=== PATIENT | male | born 1940 | race Caucasian/White ===

== ENCOUNTER 2023-01-07 14:19 | Outpatient (REF) | payer MEDICARE, SELFPAY ==
--- NOTE | ~2023-01-07 | XR_ITS ---
EXAMINATION: XR SINUSES CLINICAL INFORMATION: Sinusitis COMPARISON: None available. TECHNIQUE: 3 views of the sinuses were obtained. FINDINGS: Paranasal sinuses appear clear without air-fluid levels. No fractures are identified. No radiodense foreign bodies. XR/XR sinus min 3V IMPRESSION: Unremarkable examination. Please note if there is clinical concern, CT is a more sensitive study.
== END 2023-01-07 14:20 | disposition home or self-care (01) ==
LOC: HO.XRAY 14:19
PROVIDERS: PCP Internal Medicine; Visit Provider Otolaryngology
DX: J32.9 Chronic sinusitis, unspecified (principal)
CPT/HCPCS: 70220

== ENCOUNTER 2024-05-10 12:26 | Outpatient (AMB) | payer MEDICARE, SELFPAY ==
--- NOTE | 2024-05-10 12:44 | AM.OFFWIN_ITS ---
Intake Vital Signs 05/10/24 12:45 Height 5 ft 3 in BP 112/70 Blood Pressure Location Rt brachial Position Sitting Pulse 70 Pulse Source Pulse Oximeter Temp 97.9 F Temp Source Temporal Artery Scan Pulse Oximetry (%) 96 Intake Visit Reasons: [employer] uti Intake Note: pt is here for possible uti Patient Tobacco Use Status: Never used Tobacco Allergies No Known Allergies Allergy (Verified 05/10/24 12:44) Do you need a note to return to daycare/school/sports/work: No HPI HPI Comments History of Present Illness Details 84 y/o male patient who presents to walk in clinic with c/o Memory problems. Accompanied by who gives history. 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 He was also diagnosed with mild Cognitive impairment. Denies Urinary symptoms. Denies Prostate problems. Denies any CA. Reports that Family has been pressing for him to have Urine checked for infection, hence memory changes. PFSH Social History Patient Tobacco Use Status: Never used Tobacco Review of Systems Const All systems reviewed & are unremarkable except as noted in HPI and below Physical Exam Vital Signs: Last Vital Signs Temp 97.9 F 05/10/24 12:45 Pulse 70 05/10/24 12:45 BP 112/70 05/10/24 12:45 Pulse Ox 96 05/10/24 12:45 Const General: comfortable and no acute distress Orientation/consciousness: patient oriented x3 Other: Bladder exam deferred. Back/Spine/Pelvis Back: No back tenderness Neuro General: patient oriented x3, gait normal and moves all extremities Psych Speech and movement: Normal speech and movement present Results AMB Urinalysis, Automated UA Leukoctes 0 Kelin/uL Last Edit by Melissa Cunningham CMA on 05/10/24 12:55 UA Nitrite Negative Last Edit by Melissa Cunningham CMA on 05/10/24 12:55 UA Urobilinogen 0.2 mg/dL Last Edit by Melissa Cunningham CMA on 05/10/24 12:55 UA Protein 15 mg/dL Last Edit by Melissa Cunningham CMA on 05/10/24 12:55 UA pH 6.0 Last Edit by Melissa Cunningham CMA on 05/10/24 12:55 UA Blood 0 Vick/uL Last Edit by Melissa Cunningham CMA on 05/10/24 12:55 UA Specific [place] 1.015 Last Edit by Melissa Cunningham CMA on 05/10/24 12:55 UA Ketone Negative Last Edit by Melissa Cunningham CMA on 05/10/24 12:55 UA Bilirubin 0 mg/dL Last Edit by Melissa Cunningham CMA on 05/10/24 12:55 UA Glucose 0 mg/dL Last Edit by Melissa Cunningham CMA on 05/10/24 12:55 Results Reviewed Results Reviewed: Laboratory Last Values Urine pH (Auto) 6.0 05/10/24 12:54 Specific [place] (Auto) 1.015 05/10/24 12:54 Urine Protein (Auto) 15 mg/dL 05/10/24 12:54 Glucose (UA)(Auto) 0 mg/dL 05/10/24 12:54 Urine Ketones (Auto) Negative 05/10/24 12:54 Urine Blood (Auto) 0 Vick/uL 05/10/24 12:54 Urine Nitrite (Auto) Negative 05/10/24 12:54 Urine Bilirubin (Auto) 0 mg/dL 05/10/24 12:54 Urine Urobilinogen (Auto) 0.2 mg/dL 05/10/24 12:54 Leukocyte Esterase (Auto) 0 Kelin/uL 05/10/24 12:54 Assessment & Plan Assessment & Plan (1) Memory changes: Code(s): R41.3 - Other amnesia Plan: Family worried that memory changes could be caused by Urinary infection. Rapid U/A in the office negative today. Orders: Orders AMB Urinalysis Automated Today Z13.9 - Encounter for screening, unspecified Coding Level of Care Code Est Pt Level 3 (33310) Diagnoses Memory changes R41.3 Time Spent (min) 15
[2024-05-10 12:45] VITALS: BP 112/70; PULSE 70; TEMP 36.6; O2SAT 96
== END 2024-05-10 13:00 | disposition home or self-care (01) ==
PROVIDERS: PCP Internal Medicine; Visit Provider Nurse Practitioner Family
DX: R41.3 Other amnesia (principal); Z13.9 Encounter for screening, unspecified
CPT/HCPCS: 81003; 99213

== ENCOUNTER 2024-05-29 15:57 | Outpatient (REF) | payer MEDICARE, SELFPAY ==
--- NOTE | ~2024-05-29 | MR_ITS ---
EXAMINATION: MR BRAIN WITHOUT CONTRAST CLINICAL INFORMATION: 84-year-old with dementia. COMPARISON: None available. TECHNIQUE: MRI of the brain was obtained using routine sequences without contrast. FINDINGS: Brain Volume: There is moderate generalized diffuse brain parenchymal volume loss. Suspect slightly disproportionate diffuse cerebellar volume loss. Structural: Note is made of a relatively flattened appearance to the superior aspect of the midbrain, with a midbrain to iron ratio in the sagittal plane of 0.51. 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 Correlate with neurological examination. Brain and Meninges: There are multiple small patchy and punctate zones of FLAIR/T2 signal hyperintensity in the subcortical and deeper white matter of both cerebral hemispheres with focally confluent regions of T2 hyperintensity in the deep parieto-occipital/periatrial white matter bilaterally and adjacent to the occipital horns which are nonspecific findings but could reflect chronic ischemic microangiopathy. Allowing for artifacts near the skull base, gradient refocused imaging demonstrates no abnormal susceptibility-weighted signal loss to suggest hemorrhage, hemosiderin staining or abnormal mineralization. No extra-axial fluid collections, significant space-occupying process or mass effect are identified. Ventricles and Subarachnoid Spaces: There is moderate third, fourth and lateral ventriculomegaly, which to some extent probably reflects volume loss; however, given the periventricular findings, periventricular subependymal edema related to hydrocephalus is of concern. Consider neurosurgical consultation. Orbital Structures: Bilateral lens replacements are noted. Otherwise, the visualized orbital structures are grossly unremarkable within the limitations of the study. Vascular: Signal voids are noted in the visualized major intracranial vessels. Osseous Structures, Sinuses/Mastoids, Extracranial Soft Tissues: Unremarkable MR/MR head/brain wo con IMPRESSION: 1. Generalized diffuse brain parenchymal volume loss throughout the supratentorial and infratentorial compartment with slightly disproportionate cerebral volume loss and morphological changes in the mid brain which could be secondary to progressive supranuclear palsy. Correlate with neurological examination. 2. Findings raising the possibility for periventricular subependymal edema associated with ventriculomegaly suggesting hydrocephalus. Recommend neurosurgical/neurological consultation. 3. Chronic ischemic microangiopathy in the white matter of both cerebral hemispheres with a posterior predominance also noted. The [facility] staff will call to confirm receipt of this report with acknowledgement of the findings and any recommendations. Electronically signed by: Darian Celis MD 06/21/2024 05:00 PM EDT
== END 2024-05-29 15:58 | disposition home or self-care (01) ==
LOC: HO.MRI 15:57
PROVIDERS: PCP Internal Medicine; Visit Provider Student in an Organized Health Care Education/Training Program
DX: F03.A2 Unspecified dementia, mild, with psychotic disturbance (principal)
CPT/HCPCS: 70551

== ENCOUNTER 2024-06-01 12:41 | Outpatient (REF) | payer MEDICARE, SELFPAY ==
[2024-06-05 14:12] LABS: Methylmalonic Acid 174 nmol/L (85-423)
== END 2024-06-01 12:42 | disposition home or self-care (01) ==
LOC: HO.LAB 12:41
PROVIDERS: PCP Internal Medicine; Visit Provider Student in an Organized Health Care Education/Training Program
DX: F03.A2 Unspecified dementia, mild, with psychotic disturbance (principal)
CPT/HCPCS: 36415; 83090; 83921

== ENCOUNTER 2024-06-02 06:48 | Outpatient (REF) | payer MEDICARE, SELFPAY ==
[2024-06-10 13:53] LABS: Vitamin B1 11 nmol/L (8-30)
== END 2024-06-02 06:49 | disposition home or self-care (01) ==
LOC: HO.LAB 06:48
PROVIDERS: PCP Internal Medicine; Visit Provider Student in an Organized Health Care Education/Training Program
DX: F03.A2 Unspecified dementia, mild, with psychotic disturbance (principal)
CPT/HCPCS: 36415; 84425

== ENCOUNTER 2025-01-29 13:40 | Inpatient (IN) | payer MEDICARE, SELFPAY ==
--- NOTE | ~2025-01-29 | XR_ITS ---
EXAMINATION: XR HAND/WRIST, RIGHT XR HAND/WRIST, LEFT CLINICAL INFORMATION: first digit pain COMPARISON: None TECHNIQUE: PA, lateral, and oblique views of the each hand and wrist. FINDINGS: RIGHT HAND/WRIST: No fracture, dislocation, or suspicious bone lesion. There is normal bone mineralization. There is normal alignment. No periarticular osteopenia or evidence of erosions. MCPs appear normal. Carpal bones intact and normally aligned. No blunting of the ulnar styloid. Minimal arthritic changes in the first CMC joint, first MCP joint, and throughout the DIP joints, degenerative in appearance. No soft tissue abnormalities. LEFT HAND/WRIST: No fracture, dislocation, or suspicious bone lesion. There is normal bone mineralization. There is normal alignment. No periarticular osteopenia or evidence of erosions. MCPs appear normal. Carpal bones intact and normally aligned. No blunting of the ulnar styloid. Minimal arthritic changes in the first CMC joint, first MCP joint, and throughout the DIP joints, degenerative in appearance. Soft tissues demonstrate 2 linear radiopaque densities medial to the radial styloid. XR/XR Hand Bilat min 3v IMPRESSION: 1. No acute bony abnormalities. 2. No radiographic evidence of inflammatory arthropathy. 3. 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 Electronically signed by: Cornelius Andersen MD 01/29/2025 03:02 PM EDT
--- NOTE | ~2025-01-29 | CT_ITS ---
EXAMINATION: CT HEAD WITHOUT IV CONTRAST HISTORY: fall +headstrike. TECHNIQUE: Unenhanced helical CT of the head was performed per standard departmental protocol. Coronal and sagittal reformats of the head were also evaluated. One or more of the following techniques was used for dose reduction: Automated exposure control, adjustment of the mA and/or kV according to patient size, use of iterative reconstruction technique. DLP: 689 mGy-cm COMPARISON: There are no prior studies for comparison. FINDINGS: BRAIN: There is diffuse prominence of the ventricular system and cortical sulci, consistent with atrophy. Periventricular and subcortical white matter hypodensities are noted which are nonspecific, but often seen in the setting of small vessel ischemic disease. There is no mass effect or midline shift. No intra- or extra-axial fluid collections are identified. SINUSES: The visualized paranasal sinuses are clear. The mastoid air cells and middle ear cavities are well pneumatized. ORBITS: The visualized orbits are unremarkable. BONES/SOFT TISSUES: The extracranial soft tissues are unremarkable. The calvarium is intact. No suspicious lytic or sclerotic lesions. CT/CT head/brain wo IV con IMPRESSION: No acute intracranial abnormality. Electronically signed by: Jeevan Keller MD 01/29/2025 02:46 PM EDT
--- NOTE | ~2025-01-29 | CT_ITS ---
EXAMINATION: CT CERVICAL SPINE WITHOUT IV CONTRAST HISTORY: fall +head strike. TECHNIQUE: Helical CT of the cervical spine was performed per standard departmental protocol. Coronal and sagittal reformatted images were also evaluated. One or more of the following techniques was used for dose reduction: Automated exposure control, adjustment of the mA and/or kV according to patient size, use of iterative reconstruction technique. DLP: 276 mGy-cm COMPARISON: There are no prior studies for comparison. FINDINGS: CERVICAL SPINE: The vertebral bodies maintain normal height and alignment without evidence of fracture or subluxation. There is diffuse moderate degenerative disc disease with disc space narrowing and osteophyte formation. There is facet osteoarthritis and uncovertebral joint hypertrophy causing neural foraminal narrowing, right greater than left. Evaluation for disc pathology is limited by lack of intrathecal contrast material, however. BRAIN: The visualized portion of the brain is unremarkable. SINUSES: The visualized paranasal sinuses, mastoid air cells and middle ear cavities are unremarkable. LUNG APICES: The visualized lung apices are clear. SOFT TISSUES: The visualized paraspinal soft tissues are unremarkable. CT/CT cervical spine wo IV con IMPRESSION: No evidence of fracture or malalignment of the cervical spine. Degenerative changes as described. Electronically signed by: Jeevan Keller MD 01/29/2025 02:51 PM EDT
[2025-01-29 13:44] VITALS: BP 104/53; PULSE 62; RESP 18; TEMP 36.6; O2SAT 96; BMI 22.9
--- NOTE | 2025-01-29 13:49 | ED_ITS ---
HPI - General Adult General Chief complaint: General Medical Stated complaint: Dementia L Thumb Injury 01/28/25 Time Seen by Provider: 01/29/25 18:11 Source: family (, daughter and son) Mode of arrival: EMS Limitations: no limitations History of Present Illness ED Provider: Dr. Orlin James HPI narrative: 84-year-old male with a history of coronary artery disease, CABG at age 63, hypertension, hyperlipidemia, dementia who was brought to emergency department for evaluation of change in his behavior. According to the family, the patient has a gerontologist who has been managing he was dementia . The patient was doing well on risperidone, but this medication was stop secondary to parkinsonian like symptoms. The patient was then started on Seroquel. This was a proximally 4 weeks prior since that time the patient was had a drastic change in his behavior. The patient lives with his at [facility]. The patient has been wandering around he has been going into other residents apartments. He was become aggressive with his . Yesterday he got out of the apartment and was walking outside, tripped and fell. Patient rolled to the ground and injured his left thumb. The witnessed the fall and states he did not have any head injury or loss of consciousness. Family is concerned that the patient was become more aggressive and are requesting that he be evaluated for possible Geropsychiatric admission to stabilize his behavior. According to the family, he was not been ill in any way over the last several days, he was had no fever, chills, nausea, vomiting, shortness of breath. Related Data Home Medications ?Medication ?Instructions ?Recorded ?Confirmed isosorbide mononitrate 60 mg 60 mg PO DAILY 05/10/24 01/29/25 tablet,extended release 24 hr lisinopril 20 mg tablet 20 mg PO DAILY 05/10/24 01/29/25 metoprolol tartrate 25 mg tablet 25 mg PO BID 05/10/24 01/29/25 risperidone 0.5 mg tablet 0.5 mg PO DAILY 05/10/24 01/29/25 rosuvastatin 40 mg tablet 40 mg PO DAILY 05/10/24 01/29/25 aspirin 81 mg tablet 81 mg PO DAILY 01/29/25 01/29/25 bupropion HCl 100 mg tablet,12 hr 100 mg PO DAILY 01/29/25 01/29/25 sustained-release clopidogrel 75 mg tablet (Plavix) 75 mg PO BID 01/29/25 01/29/25 escitalopram oxalate 10 mg tablet 10 mg PO BID 01/29/25 01/29/25 (Lexapro) famotidine 20 mg tablet (Pepcid) 20 mg PO BID 01/29/25 01/29/25 risperidone 1 mg tablet 1 mg PO DAILY@1700 01/29/25 01/29/25 trazodone 50 mg tablet 50 mg PO BID 01/29/25 01/29/25 Allergies Allergy/AdvReac Type Severity Reaction Status Date / Time No Known Allergies Allergy Verified 01/29/25 13:50 [facility] Past Medical History Medical History (Updated 01/29/25 @ 23:26 by Orlin James MD) Dementia Hypertension Memory impairment 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 Surgical History (Updated 01/29/25 @ 18:35 by Claudia Caruso RN) H/O heart artery stent Hx of CABG Social History Social History Patient Tobacco Use Status: Never used Tobacco Smoked in Last 30 Days: No Use of substances other than those prescribed or required for medical reasons: No Advance Directives: No Advance Directives Information Provided: Yes Do you have a plan to hurt others: No Plan Physical Exam ED Vital Signs: Vital Signs - 24 hr 01/29/25 13:44 01/29/25 17:54 01/30/25 01:35 Temperature 97.9 F 97.3 F 97.9 F Pulse Rate 62 66 77 Respiratory Rate 18 16 16 Blood Pressure 104/53 L 153/78 H 161/76 H Pulse Oximetry 96 98 94 Oxygen Delivery Method Room Air Room Air Room Air 01/30/25 08:27 01/30/25 10:59 01/30/25 11:13 Temperature 97.2 F Pulse Rate 62 59 59 Respiratory Rate 14 16 16 Blood Pressure 180/92 H 119/64 102/64 Pulse Oximetry 95 97 98 Oxygen Delivery Method Room Air Room Air Room Air 01/30/25 11:28 01/30/25 12:06 Temperature Pulse Rate 57 Respiratory Rate 16 Blood Pressure 155/94 H 197/91 H Pulse Oximetry 97 Oxygen Delivery Method Room Air BMI result Body Mass Index 22.9 Initial vital signs were normal. Exam: General: Awake, alert oriented to person, lacks insight as to why he is here in the emergency department, does appear to be agitated Head: Normocephalic, atraumatic EENT: PERRL, Lids normal, sclera normal, conjunctiva normal, nose normal , ears normal, throat without erythema or exudates Neck: Supple, no adenopathy Lung: breath sounds symmetric, no wheezing, rales or rhonchi Chest: symmetric movement, nontender Heart: regular rate and rhythm, normal S1, S2 no murmurs or rubs Abdomen: soft, non-tender, nondistended, normal bowel sounds Back: no vertebral tenderness, no CVAT Extremities: Tenderness of the MCP joint of the left thumb with some soft tissue swelling, moves all extremities symmetrically Neuro: General: Awake, alert, oriented to person only, lacks insight as to why he was here, normal speech Cranial nerves: Cranial nerves 2-12 are intact Strength: Patient was symmetric strength, he does have an intention tremor Cerebellar: Good gblgfx-rk-ezwy-to-finger, good rapid finger movement, able to touch each finger individually with a his thumb, normal heel to mojica Psych: Patient was confused on lacks insight as to why he was here, he was slightly agitated. Course Course Course Narrative: This is a Rapid Medical Examination (RME) performed by Alin Grier PA-C in triage. Full HPI, ROS, assessment and treatment plan per primary provider in the Main ED. 01/29/25 1351 HALLE Farrell Hx: 84 yo male hx dementia, here w/ daughter and , for psych eval. family reports patient has been declining. becoming difficult to manage at home. left the home yesterday causing him to fall outside, witnessed by with +head strike. no loc. no thinners. reports paint oright 1st digit and left thumb. family spoke with PCP, advised to come to ED for possible admission to [facility] for med reconciliation. PE/vitals: vital stable. noted swelling to left thumb Plan: labs, UA, xrs, ct Reevaluation(s) Reevaluation #1: Time: 09:57 Date: 01/30/25 Provider: Fernie Ruiz MD Patient in physician observation for psychiatric evaluation.? No acute events reported overnight. No current complaints. VS stable.? Patient is in bed search status/pending CARE team evaluation. Will continue to monitor. Time: 09:57 Reevaluation #2: Patient remain sedated this morning, I re-examined the patient is still sleeping. I gastric that the last night with IM Versed/IM Benadryl and Haldol we will continue to follow Time: 12:22 Medications Administered Generic Name Dose Route Start Last Admin Trade Name Freq PRN Reason Stop Dose Admin Isosorbide Mononitrate 60 mg 01/30/25 09:00 01/30/25 12:06 Isosorbide Mononitrate 60 Mg Tab.Er.24h PO 60 mg DAILY MICHELLE Administration Protocol Discontinued Medications Generic Name Dose Route Start Last Admin Trade Name Freq PRN Reason Stop Dose Admin Acetaminophen 650 mg 01/30/25 00:39 01/30/25 01:49 Acetaminophen 325 Mg Tablet PO 01/30/25 00:40 Not Given ONCE ONE Diphenhydramine HCl 50 mg 01/30/25 00:23 01/30/25 00:31 Diphenhydramine Hcl 50 Mg/Ml Vial IM 01/30/25 00:24 50 mg ONCE ONE Administration Haloperidol Lactate 5 mg 01/30/25 00:23 01/30/25 00:31 Haloperidol Lactate 5 Mg/Ml Vial IM 01/30/25 00:24 5 mg ONCE ONE Administration Midazolam HCl 2 mg 01/30/25 00:23 01/30/25 00:31 Midazolam Hcl 2 Mg/2 Ml Vial IM 01/30/25 00:24 2 mg ONCE ONE Administration Olanzapine 10 mg 01/29/25 20:19 01/29/25 21:08 Olanzapine 10 Mg Tablet PO 01/29/25 20:20 10 mg ONCE ONE Administration Olanzapine 10 mg 01/29/25 23:34 01/29/25 23:53 Olanzapine 10 Mg Tablet PO 01/29/25 23:35 10 mg ONCE ONE Administration Risperidone 0.5 mg 01/29/25 20:17 01/29/25 21:08 Risperidone 0.5 Mg Tablet PO 01/29/25 20:18 0.5 mg ONCE ONE Administration Medical Decision Making Medical Decision Making MDM Narrative: 84-year-old male with a history of coronary artery disease, CABG at age 63, hypertension, hyperlipidemia, dementia who was brought to emergency department for evaluation of change in his behavior. According to the family, the patient has a gerontologist who has been managing he was dementia . The patient was doing well on risperidone, but this medication was stop secondary to parkinsonian like symptoms. The patient was then started on Seroquel. This was a proximally 4 weeks prior since that time the patient was had a drastic change in his behavior. The patient lives with his at [facility]. The patient has been wandering around he has been going into other residents apartments. He was become aggressive with his . Yesterday he got out of the apartment and was walking outside, tripped and fell. Patient rolled to the ground and injured his left thumb. The witnessed the fall and states he did not have any head injury or loss of consciousness. Family is concerned that the patient was become more aggressive and are requesting that he be evaluated for possible Geropsychiatric admission to stabilize his behavior. Initial vital signs were normal. Patient lacks insight as to why he was here, he was confused and agitated. Patient's neurologic exam was nonfocal and he had a normal cerebellar exam. Rest of exam was unremarkable except for tenderness palpation he was left thumb at the MCP joint. Differential diagnosis: ?Includes but is not limited to he was skull fracture, intracranial bleed, stroke, change in dementia, depression, anxiety, electrolyte abnormalities, anemia Course: 20:31 My interpretation patient's laboratory evaluation is as follows: CBC was normal. CMP was normal. TSH was normal. Urinalysis was negative. CT scan of the patient's head and cervical spine revealed no acute findings. The x-ray of the patient's left thumb/hand revealed no acute fracture. The patient was getting agitated during my exam . After my exam, he appeared to be more agitated and does not want to be here in the emergency department. therefore the patient was given his evening risperidone 0.5 mg orally and Zyprexa 10 mg orally. At this time, I believe the patient was medically cleared for care team evaluation to see if this patient would benefit from [facility] psychiatric admission. Time: 23:18 Date: 01/29/25 Provider: Orlin James MD Start physician observation 23:18 The patient was seen by the care team and it was felt that the patient's acute change in his dementia may be secondary to change in his medications and that the patient would benefit from a psychiatric evaluation and [facility] psychiatric admission. The patient was clearly confused and lacks insight into why he was here. The patient was also been exhibiting dangerous behaviors at home by wandering out of his apartment and going into other residents apartments. He has also been threatening his . Given these findings, the patient was placed on a Section 12. Patient did calm down after receiving the Zyprexa 10 mg orally. The patient will remain in the emergency department until a psychiatric consult and competency exam can be obtained. I did discuss this plan with the patient's family and they were in agreement with the plan. 01/30/2025 01:36 Physician observation continued The patient was restless and agitated, he continued to try to climb out of his bed. Patient he was given a 2nd dose of Zyprexa 10 mg orally with only minimal effect. After several attempts of the patient trying to climb out of bed and almost injuring himself, patient was chemically restrained with Haldol 5 mg, Benadryl 50 mg and Versed 2 mg IM with good effect. At the end of my shift, patient's care was turned over to my colleague, Dr. Luis Alfredo Parada. Admission/Observation Consideration of admission/observation: Escalation of care including admission/observation considered ( yes) Consult Healthcare Provider Care Team counseling Lab Data MDM Lab Attestation statement: I reviewed the patient's lab results. 01/29/25 14:03 01/29/25 14:03 Labs: Lab Results 01/29/25 01/29/25 01/29/25 Range/Units 14:03 15:53 15:56 WBC 8.4 (4.8-10.8) X10*3/uL RBC 4.29 L (4.60-5.80) X10*6/uL Hgb 14.0 (14.0-18.0) g/dl Hct 40.4 L (42.0-52.0) % MCV 94.2 (80.0-98.0) fL MCH 32.6 (27.0-33.0) pg MCHC 34.7 (31.0-36.0) g/dl RDW 12.4 (11.0-16.0) % Plt Count 177 (160-400) X10*3/uL MPV 10.7 (9.4-12.4) fL Immature Gran % (Auto) 0.4 (0.0-0.4) % Neut % (Auto) 61.1 (45-73) % Lymph % (Auto) 26.1 (20-40) % [place] % (Auto) 10.5 (2-11) % Eos % (Auto) 1.5 (0-4) % Baso % (Auto) 0.4 (0-2) % Lymph # (Auto) 2.2 (1.2-4.9) X10*3/uL [place] # (Auto) 0.9 (0.1-1.2) X10*3/uL Eos # (Auto) 0.1 (0.0-0.4) X10*3/uL Baso # (Auto) 0.0 (0.0-0.2) X10*3/uL Abs Immat Gran (auto) 0.03 (0.00-0.03) X10*3/uL Absolute Neuts (auto) 5.1 (2.0-8.3) x10*3/uL Absolute Nucleated RBC 0.000 (0.0-0.012) X10*3/uL Nucleated RBC % (auto) 0.0 (0.0-0.2) /100WBC Sodium 140 (135-145) mmol/L Potassium 4.0 (3.3-5.1) mmol/L Chloride 111 H (96-108) mmol/L Carbon Dioxide 26 (22-29) mmol/L Anion Gap 7 L (12-20) BUN 17 H (9-16) mg/dL Creatinine 1.29 (0.5-1.4) mg/dL Estim Creat Clear Calc 33.0 Estimated GFR 53 Random Glucose 99 (60-115) mg/dL Calcium 9.0 (8.4-10.2) mg/dL Magnesium 2.0 (1.6-2.6) mg/dL Total Bilirubin 1.0 (0.0-1.0) mg/dL AST 24 (5-37) U/L ALT 23 (0-40) U/L Alkaline Phosphatase 56 (39-117) U/L Total Protein 6.3 L (6.5-8.0) g/dL Albumin 3.9 (3.5-5.0) g/dL TSH 1.43 (0.32-4.0) uIU/mL Urine Color Yellow Urine Appearance Clear Urine pH 6.0 (5.0-9.0) Ur Specific [place] 1.020 (1.005-1.025) Urine Protein Trace (Neg-Trace) mg/dL Urine Glucose (UA) Negative (Negative) mg/dL Urine Ketones Trace (Negative) mg/dL Urine Blood Negative (Negative) Urine Nitrite Negative (Negative) Ur Leukocyte Esterase Negative (Negative) Urine Opiates Screen Not Detected (Not Detect) Ur Buprenorphine Scrn Not Detected (Not Detect) ng/mL Ur Oxycodone Screen Not Detected (Not Detect) ng/mL Urine Methadone Screen Not Detected (Not Detect) ng/mL Urine Fentanyl Screen Not Detected (Not Detect) Ur Barbiturates Screen Not Detected (Not Detect) Ur Phencyclidine Scrn Not Detected (Not Detect) Ur Amphetamines Screen Not Detected (Not Detect) U Benzodiazepines Scrn Not Detected (Not Detect) Urine Cocaine Screen Not Detected (Not Detect) U Marijuana (THC) Screen Not Detected (Not Detect) Radiology Impression Discussion of test interpretation with radiology: I have reviewed the radiologist's reading. Radiologist Impression: CT cervical spine wo IV con IMPRESSION: No evidence of fracture or malalignment of the cervical spine. Degenerative changes as described. Electronically signed by: Jeevan Keller MD 01/29/2025 02:51 PM EDT XR Hand Bilat min 3v IMPRESSION: 1. No acute bony abnormalities. 2. No radiographic evidence of inflammatory arthropathy. 3. 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 Electronically signed by: Cornelius Andersen MD 01/29/2025 03:02 PM EDT Independent Historian Clinical information obtained from an independent historian. History obtained from or confirmed by: Spouse and Other (Son and daughter) Chronic Conditions Patient?s care impacted by: Other (Coronary artery disease, dementia) Discharge Plan Discharge Clinical Impression: Dementia, Aggressive behavior, Wandering behavior Prescriptions: No Action trazodone 50 mg Tablet 50 mg PO BID clopidogrel [Plavix] 75 mg Tablet 75 mg PO BID bupropion HCl 100 mg Tablet Sustained-Release 12 Hr 100 mg PO DAILY famotidine [Pepcid] 20 mg Tablet 20 mg PO BID aspirin 81 mg Tablet 81 mg PO DAILY risperidone 1 mg Tablet 1 mg PO DAILY@1700 escitalopram oxalate [Lexapro] 10 mg Tablet 10 mg PO BID risperidone 0.5 mg tablet 0.5 mg PO DAILY lisinopril 20 mg tablet 20 mg PO DAILY metoprolol tartrate 25 mg tablet 25 mg PO BID rosuvastatin 40 mg tablet 40 mg PO DAILY isosorbide mononitrate 60 mg tablet extended release 24 hr 60 mg PO DAILY Print Language: Ukrainian
[2025-01-29 14:08] LABS: MANUAL DIFF FLAG NO
[2025-01-29 14:13] LABS: Basophils Percent Auto 0.4 % (0-2); Eosinophils Absolute Auto 0.1 X10*3/uL (0.0-0.4); Eosinophils Percent Auto 1.5 % (0-4); Hematocrit 40.4 % (42.0-52.0); Imm Gran Abs Auto 0.03 X10*3/uL (0.00-0.03); Imm Gran Pct Auto 0.4 % (0.0-0.4); Lymphocytes Absolute Auto 2.2 X10*3/uL (1.2-4.9); Lymphocytes Percent Auto 26.1 % (20-40); Mean Corpuscular HGB Conc 34.7 g/dl (31.0-36.0); Mean Corpuscular Hemoglobin 32.6 pg (27.0-33.0); Mean Corpuscular Volume 94.2 fL (80.0-98.0); Mean Platelet Volume 10.7 fL (9.4-12.4); Monocytes Absolute Auto 0.9 X10*3/uL (0.1-1.2); Monocytes Percent Auto 10.5 % (2-11); Neutrophils Absolute Auto 5.1 x10*3/uL (2.0-8.3); Neutrophils Percent Auto 61.1 % (45-73); Platelet Count 177 X10*3/uL (160-400); Red Blood Count 4.29 X10*6/uL (4.60-5.80); Red Cell Distribution Width 12.4 % (11.0-16.0); White Blood Count 8.4 X10*3/uL (4.8-10.8)
[2025-01-29 14:25] LABS: Alanine Aminotransferase 23 U/L (0-40); Albumin Level 3.9 g/dL (3.5-5.0); Alkaline Phosphatase 56 U/L (39-117); Anion Gap 7 (12-20); Aspartate Amino Transferase 24 U/L (5-37); Blood Urea Nitrogen 17 mg/dL (9-16); Carbon Dioxide 26 mmol/L (22-29); Chloride 111 mmol/L (96-108); Estimated Glomerular Filt Rate 53; Glucose Random 99 mg/dL (60-115); Sodium 140 mmol/L (135-145); Total Protein 6.3 g/dL (6.5-8.0)
[2025-01-29 14:44] LABS: TSH reflex Free T4 1.43 uIU/mL (0.32-4.0)
[2025-01-29 16:03] LABS: Appearance Urine Clear; Color Urine Yellow; Glucose Urine UA Negative (Negative); Leukocyte Esterase Urine Negative (Negative); Nitrite Urine Negative (Negative); Urine Blood Negative (Negative); Urine Ketones Trace mg/dL (Negative); Urine Protein Trace mg/dL (Neg-Trace)
[2025-01-29 17:54] VITALS: BP 153/78; PULSE 66; RESP 16; TEMP 36.3; O2SAT 98
--- OUTSIDE RECORDS SUMMARY | 2025-01-29 18:40 | XMS_ITS ---
Author Organization [facility] Address [address] [place] [id number] Care Team Providers Care Help Desk Support Specialist Name Role Phone Bulmaro SALCEDO, Magdiel Primary Care Provider Unava ilLilly Pimentel Unavailable [phone] Encounters Encounter Location Date Provider Diagnosis [facility] [address] [place] [address] 01/31/2024 Lilly Ellsworth Plan Of Treatment No Information Progress Notes * Cory HO NitzaDOB:1939 (84 yo M)Acc No.[id number]:01/31/2024 Progress Note Patient:Cory MENDOZA Provider:?Lilly Ellsworth DPM :1940???Age:83 Y???Sex:Male Good e:01/31/2024 Address:[address] [place], [place] [id number] Pcp:Magdiel Chamberlain MD Subjective: * Chief Complaints: * ??? * Medical History:? Objective: * Vitals:? Assessment: Plan: * Treatment: * Images: * The named appointment provid er may or may not be the originator of this progress note, and it is not deemed complete until electronically signed by the appointment provider. Sign off status: Pending * Provider:?Lilly Ellsworth DPM Date:?2023 Generated for Suhas guadarrama/Kain/eTransmitting on:?01/29/2025 06:39 PM EDT
--- OUTSIDE RECORDS SUMMARY | 2025-01-29 18:40 | XMS_ITS | Patient Health Record ---
Author Organization [facility] [place] Address [address] [facility] [place] [address] Care Team Providers Care Flight Agent Name Role Phone Magdiel Chamberlain MD Primary Care Provider Unava ilable Black, Lilly Unavailable [phone] Allergies Allergen (clinical drug ingredient) Drug/Non Drug Allergy documented on EMR Reaction Allergy Type Onset Date Status Seasonale Unknown Drug Allergy Active Dust Mite Mixed Allergen Ext Unknown Drug Allergy Active Reason For Referral No Information Medications Medication SIG (Take, Route, Frequency, Duration) Notes Start Date End Date Status Isosorbide Mononitrate ER 60 MG 1 tablet in the morning Orally Once a day Active Lisinopril 20 MG 1 tablet Orally Once a day Active Pepcid Active Voltaren 1 % as directed Externally Active Zantac 150 MG/6ML 2 ml Injection every 8 hrs Not-Taking Aspirin 81 MG 1 tablet Orally Once a day Active Doxylamine Succinate (Sleep) 25 MG 1 tablet at bedtime as needed Orally Once a day Not-Taking Brilinta 90 MG 1 tablet Orally Twic e a day for 30 day(s) Active Crestor 40 MG 1 tablet Orally Once a day Active Metoprolol Tartrate 25 MG 1 tablet with food Orally Twice a day Active Plavix 75 MG 1 tablet Orally Once a day for 30 day(s) Not-Taking Eye Drops thear Active OcuSoft Dry Eye Not- Taking Refresh Tears eye drops Active Plavix 75 MG 1 tablet Orally Once a day Not-Taking Immunizations Vaccine Route Administration Date Status Comme nts COVID-19 Pfizer BioNTech Vaccine Unknown 06/18/2022 Administered 1st 10/202011/2020 unsure dates Social History Tobacco Use: Social History Observation Description Date Details (start date - stop date) Former Smoker NA - NA Tobacco Use/Smoking Question Answer Notes Are you a: former smoker Additional Findings: Tobacco Non-User Current no n-smoker Alcohol Screen Question Answer Notes Did you have a drink contain ing alcohol in the past year? Yes How often did you have a dri nk containing alcohol in the past year? 2 to 4 times a month (2 points) Points 2 Interpretation Negative Tobacco use other than smoking: Question Answer Notes Are you an other tobacco user? No Problems Problem Type SNOMED Code ICD Code Onset Dates Problem Status W/U Status Risk Notes Problem Localized, primary osteoarthritis of the ankle and/or foot (025661198) Primary osteoarthritis, right ankle and foot (M19.071) Active confirmed Problem Non-pressure ulcer lower limb (994975346) Non-pressure chronic ulcer of other part of right foot limited to breakdown of skin (L97.511) Active confirmed Problem Acquired hammer toe of right foot (3685269710298199) Other hammer toe(s) (acquired), right foot (M20.41) Active confirmed Problem Joint contracture of the ankle and/or foot (628748535) 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) Active confirmed Encounters Encounter Location Date Provider Diagnosis [facility] [address] [place] [address] 03/21/2024 Lilly Ellsworth Plan Of Treatment Pending Test Test Name Order Date X ray : Foot, left 3V 01/04/2023 X ray : Foot, right 3V 11/22/2017 [id number] Destruction, 1-14 07/15/2023 53306-Sxuv Destruction, -14 11/18/2023 48648- Debride <25 sq cm 02/19/2020 78550, [id number]-PXQCT/INJECT, JOINT/BURSA 0 05/27/2020 90746 - Tenotomy, open flexor 02/05/2020 Insurance Providers Payer Name Payer Address Payer Phone Subscriber Number Group Number Insured Name Patient Relationship to Insured Coverage Start Date Coverage End Date [employer] Medicare [id number] [address] [address] [place] [address] [id number] Cory Ho Self - patient is the insured 1 Medical (General) History Medical History History ICD Code Heart disease High blood pressure Measles Mumps Vascular grafts blepharitis Surgical History Surgery Date(Month/Year) appendectomy triple bypass rotator cuff tear repair 2010 torn miniscus in knee 11/2019 Cardiac stent/one replaced and one opene d 11/26/2020 Colonoscopy 02/06 Hospitalization History Reason Date(Month/Year) [facility]- Cardiac issues- 3 day stay- stent r eplaced 11/26/2020
--- OUTSIDE RECORDS SUMMARY | 2025-01-29 18:40 | XMS_ITS ---
Author Organization [facility] Address [address] [place] [address] Care Team Providers Care Airplane Coverer Name Role Phone Bulmaro SALCEDO, Magdiel Primary Care Provider Unava ilable Black, Lilly Unavailable [phone] REASON FOR VISIT Cancel Encounters Encounter Location Date Provider Diagnosis [facility] [address] [place] [address] 03/21/2024 Lilly Black Plan Of Treatment No Information Progress Notes * CJPatel FERNANDESvannesa GoddardDOB:1939 (84 yo M)Acc No.[id number]:03/21/2024 Patient:?Cory Ho :1940???Age:84 Y???Sex:Male Address:[address] [place] [address] [address], [place], [address] * true * Date:? Generated for Dannyi chiara/Kain/eTransmitting on:?01/29/2025 06:40 PM EDT
--- OUTSIDE RECORDS SUMMARY | 2025-01-29 18:40 | XMS_ITS ---
Author Organization [facility] Address [address] [place] [address] Care Team Providers Care Order Runner Name Role Phone Bulmaro SALCEDO, Magdiel Primary Care Provider Unava ilLilly Pimentel Unavailable [phone] Encounters Encounter Location Date Provider Diagnosis [facility] [address] [place] [address] 03/30/2024 Lilly Ellsworth Plan Of Treatment No Information Progress Notes * Croy OHDOB:1939 (84 yo M)Acc No.[id number]:03/30/2024 Progress Note Patient:Cory MENDOZA Provider:?Lilly Ellsworth DPM :1940???Age:84 Y???Sex:Male Good e:03/30/2024 Address:[address] [place], [place] [id number] Pcp:Magdiel Chamberlain MD Subjective: * Chief Complaints: [...] DPM Date:?2023 Generated for Suhas guadarrama/Kain/eTransmitting on:?01/29/2025 06:40 PM EDT
--- OUTSIDE RECORDS SUMMARY | 2025-01-29 18:40 | XMS_ITS | Clinical Summary ---
Author Organization [facility] Address [address] [place] [address] Care Team Providers Care Clothes Shaker Name Role Phone Magdiel Chamberlain MD Primary Care Provider [phone] Allergies Active Allergy Reactions Criticality Noted Date Comments Niacin 01/07/2022 pancreatitis Medications aspirin 81 mg EC tablet Take 1 Tablet by mouth daily. Active carboxymethylcel lulose (Lubricant Eye Drops) 0.25 % ophthalmic solution apply?to the eye daily. Active clopidogreL (PLAVIX) 75 mg tablet Take?by mouth See Admin Instructions . Active famotidine (PEPCID) 20 mg tablet Take 1 Tablet by mouth 2 times daily. Active isosorbide mononitrate (IMDUR) 60 mg 24 hr tablet Take 1 Tablet by mouth daily. Active lisinopriL (PRINIVIL,ZESTRI L) 20 mg tablet Take 1 Tablet by mouth daily. Active metoprolol tartrate (LOPRESSOR) 25 mg tablet Take 1 Tablet by mouth 2 times daily. Active nitroglycerin (NITROSTAT) 0.[address] 1 Tablet under the tongue every 5 minutes as needed for Chest pain. 02/09/2024 Active rosuvastatin (CRESTOR) 40 mg tablet Take 1 Tablet by mouth daily. Active sertraline (ZOLOFT) 50 mg tablet Take 1 Tablet by mouth daily. Active PREDNISONE ORAL Take 4 mg by mouth as needed. Active Active Problems Problem Noted Date Diagnosed Date HTN (hypertension) 01/06/2022 CKD (chronic kidney disease) 01/06/2022 CAD (coronary artery disease) 01/06/2022 Atherosclerosis 01/06/2022 Atherosclerosis of [place] co ronary artery of [place] heart with stable angina pectoris (CMS/HCC V24) 01/06/2022 Medical History Medical History Date Comments CKD (chronic kidney disease) DX: CKD (chronic kidney disease) GERD (gastroesophageal reflux disease) DX:GERD (gastroesophageal reflux disease) Urge incontinence of urine DX:Ur ge incontinence of urine Family History Medical History Relation Name Comments Heart attack Mother Depression Son Relation Name Status Comments Mother Son Social History Tobacco Use Types Packs/Day Years Used Date Smoking Tobacco: Former Cigarettes Q uit: 10/18/1971 Smokeless Tobacco: Never Alcohol Use Standard Drinks/Week Comments Not Currently 0 (1 standard drink = 0.6 oz pur e alcohol) Sex and Gender Information Value Date Recorded Sex Assigned at Not on file Legal Sex Male 10:03 PM EST Gender Identity Not on file Sexual Orientation Not on file Obstetrics History Last Filed Vital Signs Vital Sign Reading Time Taken Comments Blood Pressure 122/72 02/09/2024 8:01 AM EDT Pulse 57 02/09/2024 8:01 AM EDT Temperature - - Respiratory Rate - - Oxygen Saturation - - Inhaled Oxygen Concentration - - Weight 63.5 kg (140 lb) 02/09/2024 8:01 AM EDT Height 160 cm (5' 3 ) 02/09/2024 8:01 AM EDT Body Mass Index 24.8 02/09/2024 8:01 AM EDT Plan of Treatment Upcoming Encounters Date Type Department Care Team (Late st Contact Info) Description 03/29/2025 1:00 PM EDT Office Visit [facility] [address] [facility] [address] [place] [id number] Saurabh Jeter MD [address] [facility] [address] [place] [address] Health Maintenance Due Date Last Done Comments COVID-19 Vaccine (#1) 1945 DTaP,Tdap,and Td Vaccines (1 - Tdap) 1957 Pneumococcal Vaccine: 50+ Ye ars (1 of 2 - PCV) 1957 Zoster Vaccines (1 of 2) 1988 RSV Immunization Adult Patie nts (1 - 1-dose 75+ series) 2013 Depression Screening 09/26/2022 Falls Risk Assessment 09/26/2022 Medicare Annual Wellness Visit 09/26/2022 Social Influencers of Health Screening 09/26/2022 Hypertension/CHF/CAD Annual BMP Blood Test 12/03/2024 12/03/2023 Influenza Vaccine (Season Ended) 2025 Cholesterol Screening (Lipid Panel) 12/03/2028 12/03/2023 HIB Vaccines Aged Out No longer eligi ble based on patient's age to complete this topic HPV Vaccines Aged Out No longer eligi ble based on patient's age to complete this topic Hepatitis A Vaccines Aged Out No long er eligible based on patient's age to complete this topic Hepatitis B Vaccines Aged Out No long er eligible based on patient's age to complete this topic IPV Vaccines Aged Out No longer eligi ble based on patient's age to complete this topic MMR Vaccines Aged Out No longer eligi ble based on patient's age to complete this topic Meningococcal ACWY Vaccine Aged Out N o longer eligible based on patient's age to complete this topic Meningococcal B Vaccine Aged Out No l onger eligible based on patient's age to complete this topic RSV Immunization Patients Un missy 20 months Aged Out No longer eligible b ased on patient's age to complete this topic Varicella Vaccines Aged Out No longer eligible based on patient's age to complete this topic Procedures Procedure Name Priority Date/Time Associated Diagnosis Comments ANNUAL BMP BLOOD TEST Routine 12/03/2023 LIPID PANEL Routine 12/03/2023 from Last 3 Months or Most Recently Relevant to Health Maintenance Results * Annual BMP Blood Test (12/03/2023) Pathologist [facility] Annual BMP Blood Test Abstracted us Historical Provider HEALTH MAINTENANCE Final Result * Lipid panel (12/03/2023) Pathologist [facility] LDL/HDL Ratio 0 Comment:No interpretation,ab stracted Triglycerides 0 mg/dL Comment:No interpretation,ab stracted Cholesterol 0 mg/dL Comment:No interpretation,ab stracted HDL 0 mg/dL Comment:No interpretation,ab stracted LDL Cholesterol 0 mg/dL Comment:No interpretation,ab stracted Blood Venous blood specimen / Unknown us Historical Provider LAB BLOOD ORDERABLES Leila l Result from Last 3 Months or Most Recently Relevant to Health Maintenance Insurance [employer] Care Teams Clothes Shaker Relationship Specialty Start Date End Date Magdiel Chamberlain MD [address], [place] PCP - General Pediatrics 11/27/21
[2025-01-29] MEDS: OLANZapine 10 MG TABLET PO ×2 (21:08→23:53)
[2025-01-29] MEDS: risperiDONE 0.5 MG TABLET PO (21:08)
[2025-01-30] VITALS (20 sets, daily range): BP systolic 102–219; BP diastolic 60–112; PULSE 57–90; RESP 14–18; TEMP 36.2–36.6; O2SAT 94–98
[2025-01-30] MEDS: Midazolam HCl 2 MG/2 ML VIAL IM (00:31)
[2025-01-30] MEDS: diphenhydrAMINE HCL 50 MG/ML VIAL IM (00:31)
[2025-01-30] MEDS: Haloperidol Lactate 5 MG/ML VIAL IM (00:31)
--- NOTE | 2025-01-30 01:28 | PC.NURSE ---
late entry- 005- pt noted to continue making several attempts to get out of bed. Despite verbal reassurance, PRN medication, placing a VMT in the room, offering assistance with restroom needs and changing bed sheets pt continuing to attempt to get out of bed stating I need to take the subway out of here . Pt verbally reassured it was midnight and he was in the hospital. Pt chemically restrained per MD order. Pt now sleeping in bed symmetrical rise and fall of chest as well as unlabored respirations noted. Pts VSS and VMT remains in the room. Plan of care ongoing
--- NOTE | 2025-01-30 07:47 | ECG_ITS ---
Test Reason : PROLONG QTC CHECK Blood Pressure : */* mmHG Vent. Rate : 65 BPM Atrial Rate : 65 BPM P-R Int : 134 ms QRS Dur : 76 ms QT Int : 438 ms P-R-T Axes : 25 -11 28 degrees QTcB Int : 455 ms Normal sinus rhythm Inferior infarct , age undetermined Abnormal ECG No previous ECGs available Referred By: Generic ED Physician Electronically Signed By: SAM VENEGAS MD
--- NOTE | 2025-01-30 07:52 | PC.NURSE ---
ASSUMED CARE OF PT, HE IS SLEEPING AT THIS TIME, ALLOWED TO REST. CHEST RISES NOTED, EQUAL UNLABOURED. ORDERS EKG AND UDS ENTERED REQUESTED FOR ADMISSION PROTOCOL.
[2025-01-30 08:48] LABS: Amphetamine Screen Urine Not Detected (Not Detect); Barbiturates, Urine Not Detected (Not Detect); Benzodiazepines Screen Urine Not Detected (Not Detect); Buprenorphine Scr Not Detected (Not Detect); Cannabinoid Screen Urine Not Detected (Not Detect); Cocaine Screen Urine Not Detected (Not Detect); Fentanyl, urine Not Detected (Not Detect); Methadone Screen, Urine Not Detected (Not Detect); Opiate Screen Urine Not Detected (Not Detect); Oxycodone Screen Urine Not Detected (Not Detect); Phencyclidine Screen Urine Not Detected (Not Detect)
--- NOTE | 2025-01-30 09:03 | PC.NURSE ---
This RN assumed care of the patient. Received report from Muna. Patient is sleeping, was given IM medications prior to this RN's shift. Patient will not wake for morning medications. Respirations even/unlabored. Camera remains in place for added safety/security. Patient is a flight and fall risk. Precautions remain in place. Will reattempt to wake and medicate with scheduled morning medications at a later time. Provider aware. [facility] bedsearch ongoing.
--- NOTE | 2025-01-30 10:40 | PC.NURSE ---
Patient's family at bedside (, 2 children). Family provided copy of power of tax associate attorney paperwork & POLST. Filed into patient's paper chart (ED 10). Patient continues to sleep, will not remain awake for medication administration. Aware of plan to attempt to medicate throughout the day. Dr. Ruiz instructed this RN to not medicate the patient until they're awake and able to safely take medications. [facility] ongoing.
--- NOTE | 2025-01-30 11:07 | MHC.CM.PN ---
Call from Mallika, Nurse clinical liaison for [facility] Mallika updated updated with plan of care. if rehab is needed prior to DC, Mallika can assist with possible placement at their [facility]. Mallika can be reached at [phone].
[2025-01-30] MEDS: Isosorbide Mononitrate 60 MG TAB.ER.24H PO (12:06)
--- NOTE | 2025-01-30 12:15 | PC.NURSE ---
Patient woke briefly, able to medicate with 1 tablet (Imdur). However, began falling asleep again mid-administration.
[2025-01-30] MEDS: Metoprolol Tartrate 25 MG TABLET PO ×2 (14:18→19:42)
[2025-01-30] MEDS: Aspirin 81 MG TAB.CHEW PO (14:18)
[2025-01-30] MEDS: Atorvastatin Calcium 80 MG TABLET PO (14:18)
[2025-01-30] MEDS: lisinopriL 20 MG TABLET PO (14:19)
[2025-01-30] MEDS: Clopidogrel Bisulfate 75 MG TABLET PO ×2 (14:19→19:41)
--- NOTE | 2025-01-30 14:33 | PC.NURSE ---
Patient awoke, family at bedside. Patient was able to take medications, crushed in pudding. Patient is still sleepy, but more cooperative & awake. Family brought strawberry milkshake for him to drink, which he is enjoying. Held some medications as documented (refer to EMAR) as instructed by Dr. Ruiz. Administered cardiac medications, delayed due to sleepiness and increased risk of aspiration. Video camera remains in place/on/active. Care ongoing by this RN.
--- NOTE | 2025-01-30 14:34 | MHC.CARE ---
Call from patient's psychiatric provider, Klaudia Monge, [employer] [employer] [phone], family notified her that he was here. She would like the team to know that she is involved with his care.
[2025-01-30 15:14] LABS: Alanine Aminotransferase 21 U/L (0-40); Albumin Level 3.8 g/dL (3.5-5.0); Anion Gap 9 (12-20); Aspartate Amino Transferase 32 U/L (5-37); Bilirubin Total 1.1 mg/dL (0.0-1.0); Blood Urea Nitrogen 12 mg/dL (9-16); Calcium 9.3 mg/dL (8.4-10.2); Carbon Dioxide 27 mmol/L (22-29); Chloride 112 mmol/L (96-108); Creatinine Clr Calc Pharmacy 39.1; Estimated Glomerular Filt Rate > 60; Glucose Random 113 mg/dL (60-115); Potassium 4.1 mmol/L (3.3-5.1); Sodium 144 mmol/L (135-145); Total Protein 6.4 g/dL (6.5-8.0)
--- NOTE | 2025-01-30 15:17 | PC.NURSE ---
patient transported to [facility] in stretcher w/ family members, RN, as well as security at this time.
--- NOTE | 2025-01-30 15:26 | PHA.MEDREC ---
Pharmacy Consult ? Medication Reconciliation Pharmacy has completed the medication reconciliation. Used patient's home medication list to confirm med rec. Also spoke with daughter Kymberly via phone who said that patient is taking risperidone 0.5 mg bid right now(dose is supposed to be increased to 0.5 mg in the morning and 1 mg in the evening this wednesday02/02/25). Also called [facility] and spoke to pharmacist Michela who confirmed that the direction for clopidogrel 75 mg is 1 tablet a day.
--- NOTE | 2025-01-30 16:59 | PC.ADMIT ---
Pt arrived on s1 at 15:20 from the POD via stretcher (due to sedation) for the treatment of agitation /decompensation secondary to dementia. Pt initially brought due to a fall and was hospitalized in the ED. Family raised concerns about pt becoming increasingly paranoid, agitated and confused and wanted a reza-psychiatrist to evaluate pt and adjust meds as needed. During the assessment pt is AOx1, confused, and unable to fully/meaningfully participate on assessment. Pt has a large bruise on his L lower arm from a fall at home. Pt has a past medical history of HTN, CAD, and dementia. No known allergies. Pt healthcare proxy is his , who is to bring legal documents to the unit at her next visit.
[2025-01-30 17:19] LABS: Alkaline Phosphatase 57 U/L (39-117)
[2025-01-30] MEDS: risperiDONE 1 MG TABLET PO (17:49)
[2025-01-30] MEDS: traZODone HCL 50 MG TABLET PO (19:42)
[2025-01-30] MEDS: OLANZapine 2.5 MG TABLET PO (20:43)
[2025-01-31 07:56] VITALS: BP 159/83; PULSE 99; RESP 20; TEMP 36.4; O2SAT 100
[2025-01-31] MEDS: lisinopriL 20 MG TABLET PO (07:57)
[2025-01-31] MEDS: risperiDONE 0.5 MG TABLET PO (07:57)
[2025-01-31] MEDS: Famotidine 20 MG TABLET PO (07:58)
[2025-01-31] MEDS: Aspirin 81 MG TAB.CHEW PO (07:58)
[2025-01-31] MEDS: Clopidogrel Bisulfate 75 MG TABLET PO ×2 (07:58→20:06)
[2025-01-31] MEDS: Escitalopram Oxalate 10 MG TABLET PO (07:59)
[2025-01-31] MEDS: Metoprolol Tartrate 25 MG TABLET PO ×2 (07:59→20:07)
[2025-01-31] MEDS: Atorvastatin Calcium 80 MG TABLET PO (07:59)
[2025-01-31] MEDS: Isosorbide Mononitrate 60 MG TAB.ER.24H PO (08:00)
[2025-01-31] MEDS: Acetaminophen 325 MG TABLET 650 MG PO (08:06)
--- NOTE | 2025-01-31 08:45 | P.HPPS_ITS ---
HPI Date of Service: 01/31/25 Chief Complaint: combative behaviors Sources of Information: patient interviewed, chart reviewed and crisis/core team assessment reviewed Additional Sources of Information: Patient unable to provide relevant information at this time healthcare proxy invoked Patient seen at 10:30 in evaluation chart reviewed admission physical in the emergency room reviewed patient noted to have hypertension history of heart disease history of dementia HPI Subjective Notes: Conditional Voluntary Healthcare Proxy: Yes Narrative: The patient is an 84-year-old retired male referred from the emergency room secondary to worsening confusion combativeness and wandering. Be patient lives with his at [facility]. Patient had been on Risperdal own previously apparently had parkinsonian symptoms and this was changed to Seroquel at 1 point and patient had increasing symptoms of agitation aggression and disorientation. Some of this would appear to be related to significant dementia with wandering and hallucinations. The patient was discontinued off Seroquel and started on Risperdal again on 01/26/2025. The patient had been calm increasingly combative both toward staff and his . Patient has apparently been seeing people who were not there the patient does have a psychiatrist and nurse practitioner who reportedly specialized in geriatric psychiatry. He is seeing Klaudia Riveranv nurse practitioner telephone [phone] Orozco at at [facility] in [place] telephone [phone] . The patient has been most recently on Risperdal 0.5 b.i.d. escitalopram Wellbutrin and trazodone 25 b.i.d.. 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 Surgical History (Updated 01/31/25 @ 15:19 by Gregorio Ibrahim MD) H/O heart artery stent Hx of CABG Family History: Unclear at this time Social History: Patient is living with his at [facility] he has 4 children his is healthcare proxy Substance History: None known Trauma History: None known Diagnostics Vital Signs (24Hr): Vital Signs - 24 hr 01/30/25 08:58 01/30/25 09:13 01/30/25 09:28 Temperature Pulse Rate 59 58 59 Respiratory Rate 16 16 18 Blood Pressure 108/60 170/91 H 166/68 H Pulse Oximetry 97 96 96 Oxygen Delivery Method Room Air Room Air Room Air 01/30/25 09:43 01/30/25 09:58 01/30/25 10:14 Temperature Pulse Rate 58 59 60 Respiratory Rate 16 16 14 Blood Pressure 162/75 H 170/77 H 166/93 H Pulse Oximetry 98 97 94 Oxygen Delivery Method Room Air Room Air Room Air 01/30/25 10:28 01/30/25 10:43 01/30/25 10:59 Temperature 97.9 F Pulse Rate 59 57 59 Respiratory Rate 14 16 16 Blood Pressure 165/87 H 177/92 H 119/64 Pulse Oximetry 97 96 97 Oxygen Delivery Method Room Air Room Air Room Air 01/30/25 11:13 01/30/25 11:28 01/30/25 11:42 Temperature Pulse Rate 59 57 76 Respiratory Rate 16 16 16 Blood Pressure 102/64 155/94 H 219/112 H Pulse Oximetry 98 97 98 Oxygen Delivery Method Room Air Room Air Room Air 01/30/25 12:06 01/30/25 14:18 01/30/25 14:19 Temperature Pulse Rate 61 Respiratory Rate Blood Pressure 197/91 H 181/101 H 181/101 H Pulse Oximetry Oxygen Delivery Method 01/30/25 15:20 01/30/25 19:36 01/30/25 19:42 Temperature 97.1 F 97.4 F Pulse Rate 65 90 90 Respiratory Rate 18 16 Blood Pressure 186/86 H 118/76 118/76 Pulse Oximetry 97 96 Oxygen Delivery Method Room Air Room Air 01/31/25 07:56 Temperature 97.6 F Pulse Rate 99 Respiratory Rate 20 Blood Pressure 159/83 H Pulse Oximetry 100 Oxygen Delivery Method Room Air BMI result Body Mass Index 22.9 Labs 01/29/25 14:03 01/30/25 14:50 Labs: Laboratory Results - last 48 hr 01/29/25 01/29/25 01/29/25 14:03 15:53 15:56 WBC 8.4 RBC 4.29 L Hgb 14.0 Hct 40.4 L MCV 94.2 MCH 32.6 MCHC 34.7 RDW 12.4 Plt Count 177 MPV 10.7 Immature Gran % (Auto) 0.4 Neut % (Auto) 61.1 Lymph % (Auto) 26.1 Bradley % (Auto) 10.5 Eos % (Auto) 1.5 Baso % (Auto) 0.4 Lymph # (Auto) 2.2 Bradley # (Auto) 0.9 Eos # (Auto) 0.1 Baso # (Auto) 0.0 Abs Immat Gran (auto) 0.03 Absolute Neuts (auto) 5.1 Absolute Nucleated RBC 0.000 Nucleated RBC % (auto) 0.0 Sodium 140 Potassium 4.0 Chloride 111 H Carbon Dioxide 26 Anion Gap 7 L BUN 17 H Creatinine 1.29 Estim Creat Clear Calc 33.0 Estimated GFR 53 Random Glucose 99 Calcium 9.0 Magnesium 2.0 Total Bilirubin 1.0 AST 24 ALT 23 Alkaline Phosphatase 56 Total Protein 6.3 L Albumin 3.9 TSH 1.43 Urine Color Yellow Urine Appearance Clear Urine pH 6.0 Ur Specific [place] 1.020 Urine Protein Trace Urine Glucose (UA) Negative Urine Ketones Trace Urine Blood Negative Urine Nitrite Negative Ur Leukocyte Esterase Negative Urine Opiates Screen Not Detected Ur Buprenorphine Scrn Not Detected Ur Oxycodone Screen Not Detected Urine Methadone Screen Not Detected Urine Fentanyl Screen Not Detected Ur Barbiturates Screen Not Detected Ur Phencyclidine Scrn Not Detected Ur Amphetamines Screen Not Detected U Benzodiazepines Scrn Not Detected Urine Cocaine Screen Not Detected U Marijuana (THC) Screen Not Detected 01/30/25 14:50 WBC RBC Hgb Hct MCV MCH MCHC RDW Plt Count MPV Immature Gran % (Auto) Neut % (Auto) Lymph % (Auto) Bradley % (Auto) Eos % (Auto) Baso % (Auto) Lymph # (Auto) Bradley # (Auto) Eos # (Auto) Baso # (Auto) Abs Immat Gran (auto) Absolute Neuts (auto) Absolute Nucleated RBC Nucleated RBC % (auto) Sodium 144 Potassium 4.1 Chloride 112 H Carbon Dioxide 27 Anion Gap 9 L BUN 12 Creatinine 1.09 Estim Creat Clear Calc 39.1 Estimated GFR > 60 Random Glucose 113 Calcium 9.3 Magnesium Total Bilirubin 1.1 H AST 32 ALT 21 Alkaline Phosphatase 57 Total Protein 6.4 L Albumin 3.8 TSH Urine Color Urine Appearance Urine pH Ur Specific [place] Urine Protein Urine Glucose (UA) Urine Ketones Urine Blood Urine Nitrite Ur Leukocyte Esterase Urine Opiates Screen Ur Buprenorphine Scrn Ur Oxycodone Screen Urine Methadone Screen Urine Fentanyl Screen Ur Barbiturates Screen Ur Phencyclidine Scrn Ur Amphetamines Screen U Benzodiazepines Scrn Urine Cocaine Screen U Marijuana (THC) Screen Imaging Radiology Impressions: ITS Impressions Head CT 01/29/25 13:50 IMPRESSION: No acute intracranial abnormality. Electronically signed by: Jeevan Keller MD 01/29/2025 02:46 PM EDT RP Hand X-Ray 01/29/25 14:12 IMPRESSION: 1. No acute bony abnormalities. 2. No radiographic evidence of inflammatory arthropathy. 3. 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 Electronically signed by: Cornelius Andersen MD 01/29/2025 03:02 PM EDT RP Cervical Spine CT 01/29/25 14:14 IMPRESSION: No evidence of fracture or malalignment of the cervical spine. Degenerative changes as described. Electronically signed by: Jeevan Keller MD 01/29/2025 02:51 PM EDT RP Meds/Allergies Meds Home Medications ?Medication ?Instructions ?Recorded ?Confirmed ?Type isosorbide mononitrate 60 mg 60 mg PO DAILY 05/10/24 01/29/25 History tablet,extended release 24 hr lisinopril 20 mg tablet 20 mg PO DAILY 05/10/24 01/29/25 History metoprolol tartrate 25 mg tablet 25 mg PO DAILY 05/10/24 01/30/25 History risperidone 0.5 mg tablet 0.5 mg PO BID 05/10/24 01/30/25 History rosuvastatin 40 mg tablet 40 mg PO DAILY 05/10/24 01/29/25 History bupropion HCl 100 mg tablet,12 hr 100 mg PO DAILY 01/29/25 01/29/25 History sustained-release clopidogrel 75 mg tablet (Plavix) 75 mg PO DAILY 01/29/25 01/30/25 History escitalopram oxalate 10 mg tablet 5 mg PO BID 01/29/25 01/30/25 History (Lexapro) famotidine 20 mg tablet (Pepcid) 20 mg PO BID 01/29/25 01/29/25 History trazodone 50 mg tablet 25 mg PO BID 01/29/25 01/30/25 History aspirin 81 mg tablet,delayed 81 mg PO DAILY 01/30/25 01/30/25 History release cetirizine 10 mg tablet (Zyrtec) 10 mg PO BEDTIME 01/30/25 01/30/25 History Allergies Allergies Allergy/AdvReac Type Severity Reaction Status Date / Time No Known Allergies Allergy Verified 01/29/25 13:50 Mental Status Exam Mental Status Exam Narrative: The patient is casually dressed when seen he is using a walker but has difficulty he is bradykinetic difficulty attending to the walker and himself in space he was alert in response to his name when seen the patient was not verbal he did respond to simple directions. He was noted to have difficulties in basic activities such as feeding himself ambulating sitting down in chair he was not aggressive when seen when seen impulse control was intact tremor noted unable to test further cognition at this time when seen was not verbal Assessment & Plan Assessment & Plan (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 Patient was given medication in the ER and he may be more confused today was not verbal when seen he was ambulating with difficulty and is a one-to-one for ambulation he does not have spatial awareness he did respond to his name. Patient appears to have worsening difficulty confusion and aggression in the context of dementia. Will get further history from family and outpatient providers. Check TSH B12 folate try and determine if patient has had trial of cholinesterase inhibitors/Namenda which might help with behavioral difficulties. Patient reportedly had benefitted from Risperdal on past but may be causing gait balance rigidity and this should be reconsidered. Question of adverse med reaction versus worsening of patient's primary condition with increased aggression and confusion Consider olanzapine consider Rexulti consider Namenda after medication history continue current medication for present time CBC profile unremarkable EKG noted to be sinus rhythm QTC unremarkable inferior wall MD noted on EKG patient does have history of stenting and CABG Patient educated on: other (Unable to take in information) Guardian/Caregiver educated on: diagnosis and medication risk/benefits Informed Consent: further education needed Reason for continued inpatient stay Substantial Risk for: harm to others, inability to function, rapid decompensation and med/psych decompensation Statement Statement: I have reviewed the history and physical and performed a pertinent examination on my patient. No changes have occurred unless specified. If the History and Physical was not performed prior to admission, the Hospitalist's service will be consulted for completing the admission physical. Time Spent With Patient Time: Total time managing care of this patient today ____ minutes.
[2025-01-31 13:32] LABS: Estimated Average Glucose 111 mg/dL; Hemoglobin A1C 131.5392 umol/L; Hemoglobin A1c % 5.5 % (<6.0); Total Hemoglobin (HGBA1C) 3621.3587 umol/L
[2025-01-31 13:52] LABS: Cholesterol 91 mg/dL (<200); HDL Cholesterol 37 mg/dL (>40); LDL Cholesterol Calculated 44 mg/dL (<100); Triglycerides 54 mg/dL (<150)
[2025-01-31 14:07] LABS: Free T4 (Free Thyroxine) 1.07 ng/dL (0.71-1.85); Thyroid Stimulating Hormone 2.02 uIU/mL (0.32-4.0)
[2025-01-31 14:14] LABS: Vitamin B12 > 2000 pg/mL (200-900)
[2025-01-31] MEDS: OLANZapine 2.5 MG TABLET PO (15:17)
[2025-01-31] MEDS: risperiDONE 1 MG TABLET PO (17:12)
[2025-01-31 20:05] VITALS: BP 110/58; PULSE 62; RESP 16; TEMP 36.2; O2SAT 98
[2025-01-31 20:07] VITALS: BP 110/58; PULSE 62
[2025-01-31] MEDS: traZODone HCL 50 MG TABLET PO (20:07)
[2025-02-01 09:27] VITALS: BP 160/72; PULSE 63; RESP 16; TEMP 36.7; O2SAT 95
[2025-02-01] MEDS: Isosorbide Mononitrate 60 MG TAB.ER.24H PO (09:29)
[2025-02-01] MEDS: Aspirin 81 MG TAB.CHEW PO (09:29)
[2025-02-01] MEDS: Escitalopram Oxalate 10 MG TABLET PO (09:29)
[2025-02-01] MEDS: Clopidogrel Bisulfate 75 MG TABLET PO ×2 (09:30→20:55)
[2025-02-01] MEDS: Atorvastatin Calcium 80 MG TABLET PO (09:30)
[2025-02-01] MEDS: lisinopriL 20 MG TABLET PO (09:31)
[2025-02-01] MEDS: Famotidine 20 MG TABLET PO (09:31)
[2025-02-01] MEDS: risperiDONE 0.5 MG TABLET PO (09:32)
[2025-02-01] MEDS: Metoprolol Tartrate 25 MG TABLET PO ×2 (09:32→20:56)
[2025-02-01 15:17] VITALS: BMI 22.3
[2025-02-01] MEDS: risperiDONE 1 MG TABLET PO (16:37)
[2025-02-01 20:00] VITALS: BP 129/62; PULSE 76; RESP 18; TEMP 36.6; O2SAT 96
[2025-02-01 20:56] VITALS: BP 129/62; PULSE 76
[2025-02-01] MEDS: OLANZapine 2.5 MG TABLET PO (20:57)
[2025-02-01] MEDS: traZODone HCL 50 MG TABLET PO (20:57)
--- NOTE | 2025-02-01 22:03 | HO.PSYCHPN ---
Subjective Subjective Date of Service: 02/01/25 Reason For Visit: combative behaviors Subjective Notes: Conditional Voluntary Healthcare Proxy: Yes Interim History: Patient was seen and discussed in rounds today. Records and plans were reviewed. He was somewhat restless and combative last evening and has been sleeping all morning and not arousable. Breathing well. No changes were made today Case reviewed with patient's and daughter Medication Compliance: Yes Mental Status Exam Mental Status Exam Narrative: Patient was more verbal less bradykinetic some information able to be communicated. At times frustrated in difficulty expressing his history and concerns. Mood some anxiety not overly aggressive or labile was not combative less impulsive Diagnostics Vital Signs (24Hr): Vital Signs - 24 hr 02/01/25 09:27 02/01/25 20:56 Temperature 98.1 F Pulse Rate 63 76 Respiratory Rate 16 Blood Pressure 160/72 H 129/62 Pulse Oximetry 95 Oxygen Delivery Method Room Air BMI result Body Mass Index 22.3 Labs 01/29/25 14:03 01/30/25 14:50 Labs: Laboratory Results - last 48 hr 01/31/25 13:12 Estimat Average Glucose 111 Hemoglobin A1c % 5.5 Triglycerides 54 Cholesterol 91 LDL Cholesterol, Calc 44 HDL Cholesterol 37 L Vitamin B12 > 2000 H TSH 2.02 Free T4 1.07 Imaging Radiology Impressions: ITS Impressions Head CT 01/29/25 13:50 IMPRESSION: No acute intracranial abnormality. Electronically signed by: Jeevan Keller MD 01/29/2025 02:46 PM EDT RP Hand X-Ray 01/29/25 14:12 IMPRESSION: 1. No acute bony abnormalities. 2. No radiographic evidence of inflammatory arthropathy. 3. 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 Electronically signed by: Cornelius Andersen MD 01/29/2025 03:02 PM EDT RP Cervical Spine CT 01/29/25 14:14 IMPRESSION: No evidence of fracture or malalignment of the cervical spine. Degenerative changes as described. Electronically signed by: Jeevan Keller MD 01/29/2025 02:51 PM EDT RP Medications Medications Current Medications Acetaminophen (Acetaminophen 325 Mg Tablet) 650 mg PO Q6H PRN PRN Reason: Headache/Pain, Scale 1-10 Last Admin: 01/31/25 08:06 Dose: 650 mg Al Hydroxide/Mg Hydroxide (Magnesium Hydrox/Alum Hydrox 30 Ml Oral.Susp) 30 ml PO Q6H PRN PRN Reason: Heartburn/Nausea Aspirin (Aspirin 81 Mg Tab.Chew) 81 mg PO DAILY [facility]END[facility] TO [facility] Last Admin: 02/01/25 09:29 Dose: 81 mg Atorvastatin Calcium (Atorvastatin Calcium 80 Mg Tablet) 80 mg PO DAILY [facility] TO [facility] Last Admin: 02/01/25 09:30 Dose: 80 mg Clopidogrel Bisulfate (Clopidogrel Bisulfate 75 Mg Tablet) 75 mg PO BID PENDING S[facility] TO [facility] Last Admin: 02/01/25 20:55 Dose: 75 mg Escitalopram Oxalate (Escitalopram Oxalate 10 Mg Tablet) 10 mg PO DAILY [facility] Last Admin: 02/01/25 09:29 Dose: 10 mg Famotidine (Famotidine 20 Mg Tablet) 20 mg PO DAILY [facility] Last Admin: 02/01/25 09:31 Dose: 20 mg Isosorbide Mononitrate (Isosorbide Mononitrate 60 Mg Tab.Er.24h) 60 mg PO DAILY [facility] TO [facility]; Protocol Last Admin: 02/01/25 09:29 Dose: 60 mg Lisinopril (Lisinopril 20 Mg Tablet) 20 mg PO DAILY [facility]; Protocol Last Admin: 02/01/25 09:31 Dose: 20 mg Magnesium Hydroxide (Milk Of Magnesia 30 Ml Oral.Susp) 30 ml PO DAILY PRN PRN Reason: Constipation Metoprolol Tartrate (Metoprolol Tartrate 25 Mg Tablet) 25 mg PO BID [facility]; Protocol Last Admin: 02/01/25 20:56 Dose: 25 mg Non-Formulary Medication (Bupropion Hcl) 100 mg PO DAILY [facility]END[facility] TO [facility] Olanzapine (Olanzapine 2.5 Mg Tablet) 2.5 mg PO Q4H PRN PRN Reason: agitation Last Admin: 02/01/25 20:57 Dose: 2.5 mg Risperidone (Risperidone 0.5 Mg Tablet) 0.5 mg PO DAILY [facility] Last Admin: 02/01/25 09:32 Dose: 0.5 mg Risperidone (Risperidone 1 Mg Tablet) 1 mg PO DAILY@1700 [facility] Last Admin: 02/01/25 16:37 Dose: 1 mg Trazodone HCl (Trazodone Hcl 50 Mg Tablet) 50 mg PO BEDTIME [facility]END[facility] TO [facility] Last Admin: 02/01/25 20:57 Dose: 50 mg Allergies Allergies Allergy/AdvReac Type Severity Reaction Status Date / Time No Known Allergies Allergy Verified 01/29/25 13:50 Assessment & Plan Assessment & Plan (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 Patient was given medication in the ER and he may be more confused today was not verbal when seen he was ambulating with difficulty and is a one-to-one for ambulation he does not have spatial awareness he did respond to his name. Patient appears to have worsening difficulty confusion and aggression in the context of dementia. Will get further history from family and outpatient providers. Check TSH B12 folate try and determine if patient has had trial of cholinesterase inhibitors/Namenda which might help with behavioral difficulties. Patient reportedly had benefitted from Risperdal on past but may be causing gait balance rigidity and this should be reconsidered. Question of adverse med reaction versus worsening of patient's primary condition with increased aggression and confusion Consider olanzapine consider Rexulti consider Namenda after medication history continue current medication for present time CBC profile unremarkable EKG noted to be sinus rhythm QTC unremarkable inferior wall [place] noted on EKG patient does have history of stenting and CABG 02/01/2025 Continue Risperdal if too much EPS consider change to olanzapine seems better with low-dose Risperdal trazodone at bedtime Guardian/Caregiver educated on: diagnosis and medication risk/benefits Reason for continued inpatient stay Substantial Risk for: inability to function, rapid decompensation and med/psych decompensation Time Spent With Patient Time: Total time managing care of this patient today ____ minutes.
[2025-02-02] MEDS: OLANZapine 2.5 MG TABLET PO ×3 (00:50→20:09)
[2025-02-02 08:03] VITALS: BP 146/72; PULSE 74; RESP 16; TEMP 36.8; O2SAT 97
[2025-02-02] MEDS: lisinopriL 20 MG TABLET PO (08:04)
[2025-02-02] MEDS: Clopidogrel Bisulfate 75 MG TABLET PO ×2 (08:05→20:09)
[2025-02-02] MEDS: risperiDONE 0.5 MG TABLET PO (08:05)
[2025-02-02] MEDS: Famotidine 20 MG TABLET PO (08:05)
[2025-02-02] MEDS: Metoprolol Tartrate 25 MG TABLET PO ×2 (08:05→20:08)
[2025-02-02] MEDS: Aspirin 81 MG TAB.CHEW PO (08:06)
[2025-02-02] MEDS: Escitalopram Oxalate 10 MG TABLET PO (08:06)
[2025-02-02] MEDS: Isosorbide Mononitrate 60 MG TAB.ER.24H PO (08:06)
[2025-02-02] MEDS: Atorvastatin Calcium 80 MG TABLET PO (08:07)
[2025-02-02] MEDS: risperiDONE 1 MG TABLET PO (17:27)
[2025-02-02 20:00] VITALS: BP 137/65; PULSE 63; RESP 18; TEMP 36.5; O2SAT 95
[2025-02-02] MEDS: traZODone HCL 50 MG TABLET PO (20:08)
[2025-02-02] MEDS: Acetaminophen 325 MG TABLET 650 MG PO (20:08)
[2025-02-03 08:20] VITALS: BP 152/69; PULSE 65; RESP 16; TEMP 37.1; O2SAT 97
--- NOTE | 2025-02-03 12:00 | PC.NURSE ---
[facility] unable to administer morning medications. Dr. Montgomery notified.
--- NOTE | 2025-02-03 12:13 | HO.PSYCHPN ---
Subjective Subjective Date of Service: 02/03/25 Reason For Visit: combative behaviors Subjective Notes: Conditional Voluntary Healthcare Proxy: Yes Interim History: Patient was seen and discussed in rounds today. Records and plans were reviewed. He was somewhat restless and combative last evening and has been sleeping all morning and not arousable. Breathing well. No changes were made today Review of Systems Review of Systems Yes Unobtainable due to mental status Mental Status Exam Mental Status Exam Narrative: Could not conduct an examination Diagnostics Vital Signs (24Hr): Vital Signs - 24 hr 02/02/25 20:00 02/03/25 08:20 Temperature 97.7 F 98.8 F Pulse Rate 63 65 Respiratory Rate 18 16 Blood Pressure 137/65 152/69 H Pulse Oximetry 95 97 Oxygen Delivery Method Room Air Room Air BMI result Body Mass Index 22.3 Labs 01/29/25 14:03 01/30/25 14:50 Imaging Radiology Impressions: ITS Impressions Head CT 01/29/25 13:50 IMPRESSION: No acute intracranial abnormality. Electronically signed by: Jeevan Keller MD 01/29/2025 02:46 PM EDT RP Hand X-Ray 01/29/25 14:12 IMPRESSION: 1. No acute bony abnormalities. 2. No radiographic evidence of inflammatory arthropathy. 3. 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 Electronically signed by: Cornelius Andersne MD 01/29/2025 03:02 PM EDT RP Cervical Spine CT 01/29/25 14:14 IMPRESSION: No evidence of fracture or malalignment of the cervical spine. Degenerative changes as described. Electronically signed by: Jeevan Keller MD 01/29/2025 02:51 PM EDT RP Medications Medications Current Medications Acetaminophen (Acetaminophen 325 Mg Tablet) 650 mg PO Q6H PRN PRN Reason: Headache/Pain, Scale 1-10 Last Admin: 02/02/25 20:08 Dose: 650 mg Al Hydroxide/Mg Hydroxide (Magnesium Hydrox/Alum Hydrox 30 Ml Oral.Susp) 30 ml PO Q6H PRN PRN Reason: Heartburn/Nausea Aspirin (Aspirin 81 Mg Tab.Chew) 81 mg PO DAILY [facility] Last Admin: 02/03/25 11:58 Dose: Not Given Atorvastatin Calcium (Atorvastatin Calcium 80 Mg Tablet) 80 mg PO DAILY [facility] Last Admin: 02/03/25 11:59 Dose: Not Given Clopidogrel Bisulfate (Clopidogrel Bisulfate 75 Mg Tablet) 75 mg PO BID [facility] Last Admin: 02/03/25 11:59 Dose: Not Given Escitalopram Oxalate (Escitalopram Oxalate 10 Mg Tablet) 10 mg PO DAILY [facility] Last Admin: 02/03/25 11:59 Dose: Not Given Famotidine (Famotidine 20 Mg Tablet) 20 mg PO DAILY [facility] Last Admin: 02/03/25 11:59 Dose: Not Given Isosorbide Mononitrate (Isosorbide Mononitrate 60 Mg Tab.Er.24h) 60 mg PO DAILY [facility]; Protocol Last Admin: 02/03/25 11:59 Dose: Not Given Lisinopril (Lisinopril 20 Mg Tablet) 20 mg PO DAILY [facility]; Protocol Last Admin: 02/03/25 11:59 Dose: Not Given Magnesium Hydroxide (Milk Of Magnesia 30 Ml Oral.Susp) 30 ml PO DAILY PRN PRN Reason: Constipation Metoprolol Tartrate (Metoprolol Tartrate 25 Mg Tablet) 25 mg PO BID [facility]; Protocol Last Admin: 02/03/25 11:59 Dose: Not Given Olanzapine (Olanzapine 2.5 Mg Tablet) 2.5 mg PO Q4H PRN PRN Reason: agitation Last Admin: 02/02/25 20:09 Dose: 2.5 mg Risperidone (Risperidone 0.5 Mg Tablet) 0.5 mg PO DAILY [facility] Last Admin: 02/03/25 11:59 Dose: Not Given Risperidone (Risperidone 1 Mg Tablet) 1 mg PO DAILY@1700 [facility] Last Admin: 02/02/25 17:27 Dose: 1 mg Trazodone HCl (Trazodone Hcl 50 Mg Tablet) 50 mg PO BEDTIME [facility] Last Admin: 02/02/25 20:08 Dose: 50 mg Allergies Allergies Allergy/AdvReac Type Severity Reaction Status Date / Time No Known Allergies Allergy Verified 01/29/25 13:50 Assessment & Plan Assessment & Plan (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 Patient was given medication in the ER and he may be more confused today was not verbal when seen he was ambulating with difficulty and is a one-to-one for ambulation he does not have spatial awareness he did respond to his name. Patient appears to have worsening difficulty confusion and aggression in the context of dementia. Will get further history from family and outpatient providers. Check TSH B12 folate try and determine if patient has had trial of cholinesterase inhibitors/Namenda which might help with behavioral difficulties. Patient reportedly had benefitted from Risperdal on past but may be causing gait balance rigidity and this should be reconsidered. Question of adverse med reaction versus worsening of patient's primary condition with increased aggression and confusion Consider olanzapine consider Rexulti consider Namenda after medication history continue current medication for present time CBC profile unremarkable EKG noted to be sinus rhythm QTC unremarkable inferior wall [place] noted on EKG patient does have history of stenting and CABG 02/03: Continue current plans and regimen Reason for continued inpatient stay Substantial Risk for: inability to function Time Spent With Patient Time: Total time managing care of this patient today ____ minutes.
[2025-02-03] MEDS: risperiDONE 1 MG TABLET PO (16:03)
[2025-02-03 19:59] VITALS: BP 133/91; PULSE 77; RESP 16; TEMP 36.6; O2SAT 96
[2025-02-03] MEDS: Clopidogrel Bisulfate 75 MG TABLET PO (20:00)
[2025-02-03] MEDS: traZODone HCL 50 MG TABLET PO (20:00)
[2025-02-03] MEDS: Metoprolol Tartrate 25 MG TABLET PO (20:00)
[2025-02-04] MEDS: Acetaminophen 325 MG TABLET 650 MG PO (05:32)
--- NOTE | 2025-02-04 08:25 | P.PNPSI_ITS ---
Subjective Subjective Date of Service: 02/04/25 Reason For Visit: combative behaviors Subjective Notes: Conditional Voluntary Healthcare Proxy: Yes Interim History: Patient was seen and discussed in rounds today. Records and plans were reviewed. He has had no episodes of aggressive behaviors or combativeness. Eating and sleeping adequately. No SI. No changes were made today Review of Systems Review of Systems Yes all other systems are reviewed and are negative Mental Status Exam Mental Status Exam Narrative: In today's visit he is alert, oriented to place and person. Normal speech. Moderate eye contact. Affect is constricted. No signs of psychosis. No SI. Cognitively impaired. Moves all limbs. No gait abnormalities. Judgment is marginal Diagnostics Vital Signs (24Hr): Vital Signs - 24 hr 02/03/25 19:59 Temperature 97.8 F Pulse Rate 77 Respiratory Rate 16 Blood Pressure 133/91 H Pulse Oximetry 96 Oxygen Delivery Method Room Air BMI result Body Mass Index 22.3 Labs 01/29/25 14:03 01/30/25 14:50 Imaging Radiology Impressions: ITS Impressions Head CT 01/29/25 13:50 IMPRESSION: No acute intracranial abnormality. Electronically signed by: Jeevan Keller MD 01/29/2025 02:46 PM EDT RP Hand X-Ray 01/29/25 14:12 IMPRESSION: 1. No acute bony abnormalities. 2. No radiographic evidence of inflammatory arthropathy. 3. 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 Electronically signed by: Cornelius Andersen MD 01/29/2025 03:02 PM EDT RP Cervical Spine CT 01/29/25 14:14 IMPRESSION: No evidence of fracture or malalignment of the cervical spine. Degenerative changes as described. Electronically signed by: Jeevan Keller MD 01/29/2025 02:51 PM EDT RP Medications Medications Current Medications Acetaminophen (Acetaminophen 325 Mg Tablet) 650 mg PO Q6H PRN PRN Reason: Headache/Pain, Scale 1-10 Last Admin: 02/04/25 05:32 Dose: 650 mg Al Hydroxide/Mg Hydroxide (Magnesium Hydrox/Alum Hydrox 30 Ml Oral.Susp) 30 ml PO Q6H PRN PRN Reason: Heartburn/Nausea Aspirin (Aspirin 81 Mg Tab.Chew) 81 mg PO DAILY [facility] Last Admin: 02/03/25 11:58 Dose: Not Given Atorvastatin Calcium (Atorvastatin Calcium 80 Mg Tablet) 80 mg PO DAILY [facility] Last Admin: 02/03/25 11:59 Dose: Not Given Clopidogrel Bisulfate (Clopidogrel Bisulfate 75 Mg Tablet) 75 mg PO BID [facility] Last Admin: 02/03/25 20:00 Dose: 75 mg Escitalopram Oxalate (Escitalopram Oxalate 10 Mg Tablet) 10 mg PO DAILY [facility] Last Admin: 02/03/25 11:59 Dose: Not Given Famotidine (Famotidine 20 Mg Tablet) 20 mg PO DAILY [facility] Last Admin: 02/03/25 11:59 Dose: Not Given Isosorbide Mononitrate (Isosorbide Mononitrate 60 Mg Tab.Er.24h) 60 mg PO DAILY [facility]; Protocol Last Admin: 02/03/25 11:59 Dose: Not Given Lisinopril (Lisinopril 20 Mg Tablet) 20 mg PO DAILY [facility]; Protocol Last Admin: 02/03/25 11:59 Dose: Not Given Magnesium Hydroxide (Milk Of Magnesia 30 Ml Oral.Susp) 30 ml PO DAILY PRN PRN Reason: Constipation Metoprolol Tartrate (Metoprolol Tartrate 25 Mg Tablet) 25 mg PO BID [facility]; Protocol Last Admin: 02/03/25 20:00 Dose: 25 mg Olanzapine (Olanzapine 2.5 Mg Tablet) 2.5 mg PO Q4H PRN PRN Reason: agitation Last Admin: 02/02/25 20:09 Dose: 2.5 mg Risperidone (Risperidone 0.5 Mg Tablet) 0.5 mg PO DAILY [facility] Last Admin: 02/03/25 11:59 Dose: Not Given Risperidone (Risperidone 1 Mg Tablet) 1 mg PO DAILY@1700 [facility] Last Admin: 02/03/25 16:03 Dose: 1 mg Trazodone HCl (Trazodone Hcl 50 Mg Tablet) 50 mg PO BEDTIME [facility] Last Admin: 02/03/25 20:00 Dose: 50 mg Allergies Allergies Allergy/AdvReac Type Severity Reaction Status Date / Time No Known Allergies Allergy Verified 01/29/25 13:50 Assessment & Plan Assessment & Plan (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 Patient was given medication in the ER and he may be more confused today was not verbal when seen he was ambulating with difficulty and is a one-to-one for ambulation he does not have spatial awareness he did respond to his name. Patient appears to have worsening difficulty confusion and aggression in the context of dementia. Will get further history from family and outpatient providers. Check TSH B12 folate try and determine if patient has had trial of cholinesterase inhibitors/Namenda which might help with behavioral difficulties. Patient reportedly had benefitted from Risperdal on past but may be causing gait balance rigidity and this should be reconsidered. Question of adverse med reaction versus worsening of patient's primary condition with increased aggression and confusion Consider olanzapine consider Rexulti consider Namenda after medication history continue current medication for present time CBC profile unremarkable EKG noted to be sinus rhythm QTC unremarkable inferior wall OR noted on EKG patient does have history of stenting and CABG 02/03: Continue current plans and regimen 02/04: Continue current plans and regimen Reason for continued inpatient stay Substantial Risk for: med/psych decompensation Time Spent With Patient Time: Total time managing care of this patient today ____ minutes.
[2025-02-04 08:40] VITALS: BP 172/81; PULSE 63; RESP 14; TEMP 36.9; O2SAT 98
[2025-02-04] MEDS: risperiDONE 0.5 MG TABLET PO (08:44)
[2025-02-04] MEDS: Clopidogrel Bisulfate 75 MG TABLET PO ×2 (08:44→20:37)
[2025-02-04] MEDS: Metoprolol Tartrate 25 MG TABLET PO ×2 (08:44→20:38)
[2025-02-04] MEDS: Famotidine 20 MG TABLET PO (08:44)
[2025-02-04] MEDS: Isosorbide Mononitrate 60 MG TAB.ER.24H PO (08:45)
[2025-02-04] MEDS: Atorvastatin Calcium 80 MG TABLET PO (08:45)
[2025-02-04] MEDS: Escitalopram Oxalate 10 MG TABLET PO (08:45)
[2025-02-04] MEDS: lisinopriL 20 MG TABLET PO (08:45)
[2025-02-04] MEDS: Aspirin 81 MG TAB.CHEW PO (08:45)
[2025-02-04] MEDS: risperiDONE 1 MG TABLET PO (16:45)
[2025-02-04 20:00] VITALS: BP 120/75; PULSE 73; RESP 16; TEMP 36.8; O2SAT 97
[2025-02-04 20:38] VITALS: BP 120/75; PULSE 73
[2025-02-04] MEDS: traZODone HCL 50 MG TABLET PO (20:38)
[2025-02-05 08:29] VITALS: BP 121/65; PULSE 73; RESP 18; TEMP 36.4; O2SAT 97
[2025-02-05] MEDS: Isosorbide Mononitrate 60 MG TAB.ER.24H PO (08:34)
[2025-02-05] MEDS: Escitalopram Oxalate 10 MG TABLET PO (08:35)
[2025-02-05] MEDS: Clopidogrel Bisulfate 75 MG TABLET PO ×2 (08:35→20:09)
[2025-02-05] MEDS: lisinopriL 20 MG TABLET PO (08:36)
[2025-02-05] MEDS: Metoprolol Tartrate 25 MG TABLET PO ×2 (08:36→20:08)
[2025-02-05] MEDS: Aspirin 81 MG TAB.CHEW PO (08:37)
[2025-02-05] MEDS: Atorvastatin Calcium 80 MG TABLET PO (08:37)
[2025-02-05] MEDS: Famotidine 20 MG TABLET PO (08:37)
[2025-02-05] MEDS: risperiDONE 0.5 MG TABLET PO (08:38)
--- NOTE | 2025-02-05 14:39 | HO.PSYCHPN ---
Subjective Subjective Date of Service: 02/05/25 Reason For Visit: combative behaviors Interim History: Met with patient; discussed with team; reviewed chart On approach, Patient sleeping on approach, snoring a little bit. Foreign Law Consultant did not think it necessary to disturb patient after getting report from team who reports that patient is confused, though pleasant and has had no issues today, taking his medications, eating well. Said he had a visit with his today and knows who he is, his in his daughter. Mental Status Exam Mental Status Exam Narrative: Sleeping on approach but reportedly Overall Pt is alert and oriented; behavior is cooperative and calm; patient is not in distress; dressed in casual attire; mood is described as stable and affect congruent; thought process impaired; no SI/HI/AVH expressed. Patients insight and judgment impaired Diagnostics Vital Signs (24Hr): Vital Signs - 24 hr 02/04/25 20:00 02/04/25 20:38 02/05/25 08:29 Temperature 98.2 F 97.6 F Pulse Rate 73 73 73 Respiratory Rate 16 18 Blood Pressure 120/75 120/75 121/65 Pulse Oximetry 97 97 Oxygen Delivery Method Room Air Room Air BMI result Body Mass Index 22.3 Labs 01/29/25 14:03 01/30/25 14:50 Imaging Radiology Impressions: ITS Impressions Head CT 01/29/25 13:50 IMPRESSION: No acute intracranial abnormality. Electronically signed by: Jeevan Keller MD 01/29/2025 02:46 PM EDT RP Hand X-Ray 01/29/25 14:12 IMPRESSION: 1. No acute bony abnormalities. 2. No radiographic evidence of inflammatory arthropathy. 3. 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 Electronically signed by: Cornelius Andersen MD 01/29/2025 03:02 PM EDT RP Cervical Spine CT 01/29/25 14:14 IMPRESSION: No evidence of fracture or malalignment of the cervical spine. Degenerative changes as described. Electronically signed by: Jeevan Keller MD 01/29/2025 02:51 PM EDT RP Medications Medications Current Medications Acetaminophen (Acetaminophen 325 Mg Tablet) 650 mg PO Q6H PRN PRN Reason: Headache/Pain, Scale 1-10 Last Admin: 02/04/25 05:32 Dose: 650 mg Al Hydroxide/Mg Hydroxide (Magnesium Hydrox/Alum Hydrox 30 Ml Oral.Susp) 30 ml PO Q6H PRN PRN Reason: Heartburn/Nausea Aspirin (Aspirin 81 Mg Tab.Chew) 81 mg PO DAILY [facility] Last Admin: 02/05/25 08:37 Dose: 81 mg Atorvastatin Calcium (Atorvastatin Calcium 80 Mg Tablet) 80 mg PO DAILY [facility] Last Admin: 02/05/25 08:37 Dose: 80 mg Clopidogrel Bisulfate (Clopidogrel Bisulfate 75 Mg Tablet) 75 mg PO BID [facility] Last Admin: 02/05/25 08:35 Dose: 75 mg Escitalopram Oxalate (Escitalopram Oxalate 10 Mg Tablet) 10 mg PO DAILY [facility] Last Admin: 02/05/25 08:35 Dose: 10 mg Famotidine (Famotidine 20 Mg Tablet) 20 mg PO DAILY [facility] Last Admin: 02/05/25 08:37 Dose: 20 mg Isosorbide Mononitrate (Isosorbide Mononitrate 60 Mg Tab.Er.24h) 60 mg PO DAILY [facility]; Protocol Last Admin: 02/05/25 08:34 Dose: 60 mg Lisinopril (Lisinopril 20 Mg Tablet) 20 mg PO DAILY [facility]; Protocol Last Admin: 02/05/25 08:36 Dose: 20 mg Magnesium Hydroxide (Milk Of Magnesia 30 Ml Oral.Susp) 30 ml PO DAILY PRN PRN Reason: Constipation Metoprolol Tartrate (Metoprolol Tartrate 25 Mg Tablet) 25 mg PO BID [facility]; Protocol Last Admin: 02/05/25 08:36 Dose: 25 mg Olanzapine (Olanzapine 2.5 Mg Tablet) 2.5 mg PO Q4H PRN PRN Reason: agitation Last Admin: 02/02/25 20:09 Dose: 2.5 mg Risperidone (Risperidone 0.5 Mg Tablet) 0.5 mg PO DAILY [facility] Last Admin: 02/05/25 08:38 Dose: 0.5 mg Risperidone (Risperidone 1 Mg Tablet) 1 mg PO DAILY@1700 [facility] Last Admin: 02/04/25 16:45 Dose: 1 mg Trazodone HCl (Trazodone Hcl 50 Mg Tablet) 50 mg PO BEDTIME [facility] Last Admin: 02/04/25 20:38 Dose: 50 mg Allergies Allergies Allergy/AdvReac Type Severity Reaction Status Date / Time No Known Allergies Allergy Verified 01/29/25 13:50 Assessment & Plan Assessment & Plan (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 Patient was given medication in the ER and he may be more confused today was not verbal when seen he was ambulating with difficulty and is a one-to-one for ambulation he does not have spatial awareness he did respond to his name. Patient appears to have worsening difficulty confusion and aggression in the context of dementia. Will get further history from family and outpatient providers. Check TSH B12 folate try and determine if patient has had trial of cholinesterase inhibitors/Namenda which might help with behavioral difficulties. Patient reportedly had benefitted from Risperdal on past but may be causing gait balance rigidity and this should be reconsidered. Question of adverse med reaction versus worsening of patient's primary condition with increased aggression and confusion Consider olanzapine consider Rexulti consider Namenda after medication history continue current medication for present time CBC profile unremarkable EKG noted to be sinus rhythm QTC unremarkable inferior wall MN noted on EKG patient does have history of stenting and CABG 02/03: Continue current plans and regimen 02/04: Continue current plans and regimen 02/05 staff reports that patient remains confused but is pleasant and has had no issues today, taking his medications, eating well; visited today and knows who he is, his in his daughter. -vital signs WNL -no new labs Reason for continued inpatient stay Substantial Risk for: inability to function Time Spent With Patient Time: Total time managing care of this patient today ____ minutes.
[2025-02-05] MEDS: risperiDONE 1 MG TABLET PO (18:33)
[2025-02-05 20:00] VITALS: BP 100/59; PULSE 66; RESP 18; TEMP 36.3; O2SAT 96
[2025-02-05] MEDS: traZODone HCL 50 MG TABLET PO (20:09)
[2025-02-06] MEDS: Acetaminophen 325 MG TABLET 650 MG PO ×2 (03:42→20:41)
[2025-02-06 08:10] VITALS: BP 166/80; PULSE 70; RESP 15; TEMP 36.3; O2SAT 97
[2025-02-06] MEDS: Clopidogrel Bisulfate 75 MG TABLET PO ×2 (08:38→20:41)
[2025-02-06] MEDS: Isosorbide Mononitrate 60 MG TAB.ER.24H PO (08:38)
[2025-02-06] MEDS: Atorvastatin Calcium 80 MG TABLET PO (08:39)
[2025-02-06] MEDS: Escitalopram Oxalate 10 MG TABLET PO (08:39)
[2025-02-06] MEDS: lisinopriL 20 MG TABLET PO (08:39)
[2025-02-06] MEDS: Aspirin 81 MG TAB.CHEW PO (08:40)
[2025-02-06] MEDS: Famotidine 20 MG TABLET PO (08:40)
[2025-02-06] MEDS: Metoprolol Tartrate 25 MG TABLET PO ×2 (08:41→20:41)
[2025-02-06] MEDS: risperiDONE 0.5 MG TABLET PO (08:41)
[2025-02-06] MEDS: risperiDONE 1 MG TABLET PO (16:03)
[2025-02-06 20:00] VITALS: BP 166/82; PULSE 77; RESP 16; TEMP 36.3; O2SAT 98
[2025-02-06] MEDS: traZODone HCL 50 MG TABLET PO (20:41)
--- NOTE | 2025-02-06 22:59 | P.PNPSI_ITS ---
Subjective Subjective Date of Service: 02/06/25 Reason For Visit: combative behaviors Healthcare Proxy: Yes Interim History: Slept okay Patient seen chart reviewed case reviewed with nursing staff. Case had been discussed with patient's family. Patient is calmer more social redirectable perplexed and anxious at times but not combative or agitated. Mental Status Exam Mental Status Exam Narrative: Patient casually dressed alert response to name can start answering some casual questions follows simple commands does become perplexed and anxious when he is unable to communicate or remember the right information. Not impulsive agitated or combative when seen no gross paranoia noted Diagnostics Vital Signs (24Hr): Vital Signs - 24 hr 02/06/25 08:10 02/06/25 20:00 Temperature 97.3 F 97.4 F Pulse Rate 70 77 Respiratory Rate 15 16 Blood Pressure 166/80 H 166/82 H Pulse Oximetry 97 98 Oxygen Delivery Method Room Air Room Air BMI result Body Mass Index 22.3 Labs 01/29/25 14:03 01/30/25 14:50 Imaging Radiology Impressions: ITS Impressions Head CT 01/29/25 13:50 IMPRESSION: No acute intracranial abnormality. Electronically signed by: Jeevan Keller MD 01/29/2025 02:46 PM EDT RP Hand X-Ray 01/29/25 14:12 IMPRESSION: 1. No acute bony abnormalities. 2. No radiographic evidence of inflammatory arthropathy. 3. 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 Electronically signed by: Cornelius Andersen MD 01/29/2025 03:02 PM EDT RP Cervical Spine CT 01/29/25 14:14 IMPRESSION: No evidence of fracture or malalignment of the cervical spine. Degenerative changes as described. Electronically signed by: Jeevan Keller MD 01/29/2025 02:51 PM EDT RP Medications Medications Current Medications Acetaminophen (Acetaminophen 325 Mg Tablet) 650 mg PO Q6H PRN PRN Reason: Headache/Pain, Scale 1-10 Last Admin: 02/06/25 20:41 Dose: 650 mg Al Hydroxide/Mg Hydroxide (Magnesium Hydrox/Alum Hydrox 30 Ml Oral.Susp) 30 ml PO Q6H PRN PRN Reason: Heartburn/Nausea Aspirin (Aspirin 81 Mg Tab.Chew) 81 mg PO DAILY [facility] Last Admin: 02/06/25 08:40 Dose: 81 mg Atorvastatin Calcium (Atorvastatin Calcium 80 Mg Tablet) 80 mg PO DAILY [facility] Last Admin: 02/06/25 08:39 Dose: 80 mg Clopidogrel Bisulfate (Clopidogrel Bisulfate 75 Mg Tablet) 75 mg PO BID [facility] Last Admin: 02/06/25 20:41 Dose: 75 mg Escitalopram Oxalate (Escitalopram Oxalate 10 Mg Tablet) 10 mg PO DAILY [facility] Last Admin: 02/06/25 08:39 Dose: 10 mg Famotidine (Famotidine 20 Mg Tablet) 20 mg PO DAILY [facility] Last Admin: 02/06/25 08:40 Dose: 20 mg Isosorbide Mononitrate (Isosorbide Mononitrate 60 Mg Tab.Er.24h) 60 mg PO DAILY [facility]; Protocol Last Admin: 02/06/25 08:38 Dose: 60 mg Lisinopril (Lisinopril 20 Mg Tablet) 20 mg PO DAILY [facility]; Protocol Last Admin: 02/06/25 08:39 Dose: 20 mg Magnesium Hydroxide (Milk Of Magnesia 30 Ml Oral.Susp) 30 ml PO DAILY PRN PRN Reason: Constipation Metoprolol Tartrate (Metoprolol Tartrate 25 Mg Tablet) 25 mg PO BID [facility]; Protocol Last Admin: 02/06/25 20:41 Dose: 25 mg Olanzapine (Olanzapine 2.5 Mg Tablet) 2.5 mg PO Q4H PRN PRN Reason: agitation Last Admin: 02/02/25 20:09 Dose: 2.5 mg Risperidone (Risperidone 0.5 Mg Tablet) 0.5 mg PO DAILY [facility] Last Admin: 02/06/25 08:41 Dose: 0.5 mg Risperidone (Risperidone 1 Mg Tablet) 1 mg PO DAILY@1700 [facility] Last Admin: 02/06/25 16:03 Dose: 1 mg Trazodone HCl (Trazodone Hcl 50 Mg Tablet) 50 mg PO BEDTIME [facility] Last Admin: 02/06/25 20:41 Dose: 50 mg Allergies Allergies Allergy/AdvReac Type Severity Reaction Status Date / Time No Known Allergies Allergy Verified 01/29/25 13:50 Assessment & Plan Assessment & Plan (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 Patient was given medication in the ER and he may be more confused today was not verbal when seen he was ambulating with difficulty and is a one-to-one for ambulation he does not have spatial awareness he did respond to his name. Patient appears to have worsening difficulty confusion and aggression in the context of dementia. Will get further history from family and outpatient providers. Check TSH B12 folate try and determine if patient has had trial of cholinesterase inhibitors/Namenda which might help with behavioral difficulties. Patient reportedly had benefitted from Risperdal on past but may be causing gait balance rigidity and this should be reconsidered. Question of adverse med reaction versus worsening of patient's primary condition with increased aggression and confusion Consider olanzapine consider Rexulti consider Namenda after medication history continue current medication for present time CBC profile unremarkable EKG noted to be sinus rhythm QTC unremarkable inferior wall [place] noted on EKG patient does have history of stenting and CABG 02/01/2025 Continue Risperdal if too much EPS consider change to olanzapine seems better with low-dose Risperdal trazodone at bedtime 02/06/2025 Patient seems more stable seen with family. Concerns regarding patient were reviewed including diagnosis recommendations including recommendation for a sample case porter. Patient's does have an alarm for when he leaves the apartment. Cholinesterase inhibitor contraindicated patient seems more stable on relatively low-dose Risperdal and trazodone. Trazodone was not useful as a PRN for agitation but seems useful for sleep. Reason for continued inpatient stay Substantial Risk for: inability to function, rapid decompensation and med/psych decompensation Time Spent With Patient Time: Total time managing care of this patient today ____ minutes.
[2025-02-07 08:00] VITALS: BP 154/76; PULSE 75; RESP 16; TEMP 36.1; O2SAT 97
[2025-02-07] MEDS: Clopidogrel Bisulfate 75 MG TABLET PO ×2 (08:11→20:06)
[2025-02-07 08:12] VITALS: BP 154/76; PULSE 75
[2025-02-07] MEDS: Atorvastatin Calcium 80 MG TABLET PO (08:12)
[2025-02-07] MEDS: Metoprolol Tartrate 25 MG TABLET PO ×2 (08:12→20:05)
[2025-02-07] MEDS: Escitalopram Oxalate 10 MG TABLET PO (08:13)
[2025-02-07] MEDS: risperiDONE 0.5 MG TABLET PO (08:13)
[2025-02-07 08:14] VITALS: BP 154/76
[2025-02-07] MEDS: Famotidine 20 MG TABLET PO (08:14)
[2025-02-07] MEDS: Isosorbide Mononitrate 60 MG TAB.ER.24H PO (08:14)
[2025-02-07] MEDS: lisinopriL 20 MG TABLET PO (08:14)
[2025-02-07] MEDS: Aspirin 81 MG TAB.CHEW PO (08:15)
--- NOTE | 2025-02-07 13:40 | HO.PSYCHPN ---
Subjective Subjective Date of Service: 02/07/25 Reason For Visit: combative behaviors Subjective Notes: Conditional Voluntary Healthcare Proxy: Yes Interim History: Patient more stable verbal redirectable gets frustrated at times. Good intake sleep and appetite okay not aggressive Medication Compliance: Yes Mental Status Exam Mental Status Exam Narrative: Patient casually dressed alert response to name can start answering some casual questions follows simple commands does become perplexed and anxious when he is unable to communicate or remember the right information but improving Not impulsive agitated or combative when seen no gross paranoia noted Diagnostics Vital Signs (24Hr): Vital Signs - 24 hr 02/06/25 20:00 02/07/25 08:00 02/07/25 08:12 Temperature 97.4 F 96.9 F Pulse Rate 77 75 75 Respiratory Rate 16 16 Blood Pressure 166/82 H 154/76 H 154/76 H Pulse Oximetry 98 97 Oxygen Delivery Method Room Air Room Air 02/07/25 08:14 Temperature Pulse Rate Respiratory Rate Blood Pressure 154/76 H Pulse Oximetry Oxygen Delivery Method BMI result Body Mass Index 22.3 Labs 01/29/25 14:03 01/30/25 14:50 Imaging Radiology Impressions: ITS Impressions Head CT 01/29/25 13:50 IMPRESSION: No acute intracranial abnormality. Electronically signed by: Jeevan Keller MD 01/29/2025 02:46 PM EDT RP Hand X-Ray 01/29/25 14:12 IMPRESSION: 1. No acute bony abnormalities. 2. No radiographic evidence of inflammatory arthropathy. 3. 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 Electronically signed by: Cornelius Andersen MD 01/29/2025 03:02 PM EDT RP Cervical Spine CT 01/29/25 14:14 IMPRESSION: No evidence of fracture or malalignment of the cervical spine. Degenerative changes as described. Electronically signed by: Jeevan Keller MD 01/29/2025 02:51 PM EDT RP Medications Medications Current Medications Acetaminophen (Acetaminophen 325 Mg Tablet) 650 mg PO Q6H PRN PRN Reason: Headache/Pain, Scale 1-10 Last Admin: 02/06/25 20:41 Dose: 650 mg Al Hydroxide/Mg Hydroxide (Magnesium Hydrox/Alum Hydrox 30 Ml Oral.Susp) 30 ml PO Q6H PRN PRN Reason: Heartburn/Nausea Aspirin (Aspirin 81 Mg Tab.Chew) 81 mg PO DAILY [facility] Last Admin: 02/07/25 08:15 Dose: 81 mg Atorvastatin Calcium (Atorvastatin Calcium 80 Mg Tablet) 80 mg PO DAILY [facility] Last Admin: 02/07/25 08:12 Dose: 80 mg Clopidogrel Bisulfate (Clopidogrel Bisulfate 75 Mg Tablet) 75 mg PO BID [facility] Last Admin: 02/07/25 08:11 Dose: 75 mg Escitalopram Oxalate (Escitalopram Oxalate 10 Mg Tablet) 10 mg PO DAILY [facility] Last Admin: 02/07/25 08:13 Dose: 10 mg Famotidine (Famotidine 20 Mg Tablet) 20 mg PO DAILY [facility] Last Admin: 02/07/25 08:14 Dose: 20 mg Isosorbide Mononitrate (Isosorbide Mononitrate 60 Mg Tab.Er.24h) 60 mg PO DAILY [facility]; Protocol Last Admin: 02/07/25 08:14 Dose: 60 mg Lisinopril (Lisinopril 20 Mg Tablet) 20 mg PO DAILY [facility]; Protocol Last Admin: 02/07/25 08:14 Dose: 20 mg Magnesium Hydroxide (Milk Of Magnesia 30 Ml Oral.Susp) 30 ml PO DAILY PRN PRN Reason: Constipation Metoprolol Tartrate (Metoprolol Tartrate 25 Mg Tablet) 25 mg PO BID [facility]; Protocol Last Admin: 02/07/25 08:12 Dose: 25 mg Olanzapine (Olanzapine 2.5 Mg Tablet) 2.5 mg PO Q4H PRN PRN Reason: agitation Last Admin: 02/02/25 20:09 Dose: 2.5 mg Risperidone (Risperidone 0.5 Mg Tablet) 0.5 mg PO DAILY [facility] Last Admin: 02/07/25 08:13 Dose: 0.5 mg Risperidone (Risperidone 1 Mg Tablet) 1 mg PO DAILY@1700 [facility] Last Admin: 02/06/25 16:03 Dose: 1 mg Trazodone HCl (Trazodone Hcl 50 Mg Tablet) 50 mg PO BEDTIME [facility] Last Admin: 02/06/25 20:41 Dose: 50 mg Allergies Allergies Allergy/AdvReac Type Severity Reaction Status Date / Time No Known Allergies Allergy Verified 01/29/25 13:50 Assessment & Plan Assessment & Plan (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 Patient was given medication in the ER and he may be more confused today was not verbal when seen he was ambulating with difficulty and is a one-to-one for ambulation he does not have spatial awareness he did respond to his name. Patient appears to have worsening difficulty confusion and aggression in the context of dementia. Will get further history from family and outpatient providers. Check TSH B12 folate try and determine if patient has had trial of cholinesterase inhibitors/Namenda which might help with behavioral difficulties. Patient reportedly had benefitted from Risperdal on past but may be causing gait balance rigidity and this should be reconsidered. Question of adverse med reaction versus worsening of patient's primary condition with increased aggression and confusion Consider olanzapine consider Rexulti consider Namenda after medication history continue current medication for present time CBC profile unremarkable EKG noted to be sinus rhythm QTC unremarkable inferior wall [place] noted on EKG patient does have history of stenting and CABG 02/01/2025 Continue Risperdal if too much EPS consider change to olanzapine seems better with low-dose Risperdal trazodone at bedtime 02/06/2025 Patient seems more stable seen with family. Concerns regarding patient were reviewed including diagnosis recommendations including recommendation for a shoe caser. Patient's does have an alarm for when he leaves the apartment. Cholinesterase inhibitor contraindicated patient seems more stable on relatively low-dose Risperdal and trazodone. Trazodone was not useful as a PRN for agitation but seems useful for sleep. 02/07/2025 Patient was seen by family seems ongoing more stable less irritable less perplexed and agitated. Calmer no adverse effects noted from medication including Risperdal continue plan of care discharge planning Reason for continued inpatient stay Substantial Risk for: inability to function and rapid decompensation Time Spent With Patient Time: Total time managing care of this patient today ____ minutes.
[2025-02-07] MEDS: risperiDONE 1 MG TABLET PO (16:44)
[2025-02-07 20:00] VITALS: BP 152/78; PULSE 67; RESP 18; TEMP 36.2; O2SAT 97
[2025-02-07] MEDS: traZODone HCL 50 MG TABLET PO (20:06)
[2025-02-08 08:23] VITALS: BP 120/63; PULSE 74; RESP 16; TEMP 36.9; O2SAT 96
[2025-02-08] MEDS: Clopidogrel Bisulfate 75 MG TABLET PO ×2 (08:38→20:32)
[2025-02-08] MEDS: risperiDONE 0.5 MG TABLET PO (08:40)
[2025-02-08] MEDS: Isosorbide Mononitrate 60 MG TAB.ER.24H PO (08:40)
[2025-02-08] MEDS: Famotidine 20 MG TABLET PO (08:40)
[2025-02-08] MEDS: Escitalopram Oxalate 10 MG TABLET PO (08:48)
[2025-02-08] MEDS: Metoprolol Tartrate 25 MG TABLET PO ×2 (08:48→20:31)
[2025-02-08] MEDS: Atorvastatin Calcium 80 MG TABLET PO (08:49)
[2025-02-08] MEDS: Aspirin 81 MG TAB.CHEW PO (08:49)
[2025-02-08 10:11] VITALS: BMI 22.4
--- NOTE | 2025-02-08 15:30 | HO.PSYCHPN ---
Subjective Subjective Date of Service: 02/08/25 Reason For Visit: combative behaviors Subjective Notes: Conditional Voluntary Healthcare Proxy: Yes Interim History: pt calm cooperative occ redirection reassurance Mental Status Exam Mental Status Exam Narrative: Patient casually dressed alert response to name can start answering some casual questions follows simple commands does become perplexed and anxious when he is unable to communicate or remember the right information but improving ongoing pleasant affect Not impulsive agitated or combative when seen no gross paranoia noted Diagnostics Vital Signs (24Hr): Vital Signs - 24 hr 02/07/25 20:00 02/08/25 08:23 Temperature 97.2 F 98.5 F Pulse Rate 67 74 Respiratory Rate 18 16 Blood Pressure 152/78 H 120/63 Pulse Oximetry 97 96 Oxygen Delivery Method Room Air Room Air BMI result Body Mass Index 22.4 Labs 01/29/25 14:03 01/30/25 14:50 Imaging Radiology Impressions: ITS Impressions Head CT 01/29/25 13:50 IMPRESSION: No acute intracranial abnormality. Electronically signed by: Jeevan Keller MD 01/29/2025 02:46 PM EDT RP Hand X-Ray 01/29/25 14:12 IMPRESSION: 1. No acute bony abnormalities. 2. No radiographic evidence of inflammatory arthropathy. 3. 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 Electronically signed by: Cornelius Andersen MD 01/29/2025 03:02 PM EDT RP Cervical Spine CT 01/29/25 14:14 IMPRESSION: No evidence of fracture or malalignment of the cervical spine. Degenerative changes as described. Electronically signed by: Jeevan Keller MD 01/29/2025 02:51 PM EDT RP Medications Medications Current Medications Acetaminophen (Acetaminophen 325 Mg Tablet) 650 mg PO Q6H PRN PRN Reason: Headache/Pain, Scale 1-10 Last Admin: 02/06/25 20:41 Dose: 650 mg Al Hydroxide/Mg Hydroxide (Magnesium Hydrox/Alum Hydrox 30 Ml Oral.Susp) 30 ml PO Q6H PRN PRN Reason: Heartburn/Nausea Aspirin (Aspirin 81 Mg Tab.Chew) 81 mg PO DAILY [facility] Last Admin: 02/08/25 08:49 Dose: 81 mg Atorvastatin Calcium (Atorvastatin Calcium 80 Mg Tablet) 80 mg PO DAILY [facility] Last Admin: 02/08/25 08:49 Dose: 80 mg Clopidogrel Bisulfate (Clopidogrel Bisulfate 75 Mg Tablet) 75 mg PO BID [facility] Last Admin: 02/08/25 08:38 Dose: 75 mg Escitalopram Oxalate (Escitalopram Oxalate 10 Mg Tablet) 10 mg PO DAILY [facility] Last Admin: 02/08/25 08:48 Dose: 10 mg Famotidine (Famotidine 20 Mg Tablet) 20 mg PO DAILY [facility] Last Admin: 02/08/25 08:40 Dose: 20 mg Isosorbide Mononitrate (Isosorbide Mononitrate 60 Mg Tab.Er.24h) 60 mg PO DAILY [facility]; Protocol Last Admin: 02/08/25 08:40 Dose: 60 mg Lisinopril (Lisinopril 20 Mg Tablet) 20 mg PO DAILY [facility]; Protocol Last Admin: 02/08/25 10:20 Dose: Not Given Magnesium Hydroxide (Milk Of Magnesia 30 Ml Oral.Susp) 30 ml PO DAILY PRN PRN Reason: Constipation Metoprolol Tartrate (Metoprolol Tartrate 25 Mg Tablet) 25 mg PO BID [facility]; Protocol Last Admin: 02/08/25 08:48 Dose: 25 mg Olanzapine (Olanzapine 2.5 Mg Tablet) 2.5 mg PO Q4H PRN PRN Reason: agitation Last Admin: 02/02/25 20:09 Dose: 2.5 mg Risperidone (Risperidone 0.5 Mg Tablet) 0.5 mg PO DAILY [facility] Last Admin: 02/08/25 08:40 Dose: 0.5 mg Risperidone (Risperidone 1 Mg Tablet) 1 mg PO DAILY@1700 [facility] Last Admin: 02/07/25 16:44 Dose: 1 mg Trazodone HCl (Trazodone Hcl 50 Mg Tablet) 50 mg PO BEDTIME [facility] Last Admin: 02/07/25 20:06 Dose: 50 mg Allergies Allergies Allergy/AdvReac Type Severity Reaction Status Date / Time No Known Allergies Allergy Verified 01/29/25 13:50 Assessment & Plan Assessment & Plan (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 Patient was given medication in the ER and he may be more confused today was not verbal when seen he was ambulating with difficulty and is a one-to-one for ambulation he does not have spatial awareness he did respond to his name. Patient appears to have worsening difficulty confusion and aggression in the context of dementia. Will get further history from family and outpatient providers. Check TSH B12 folate try and determine if patient has had trial of cholinesterase inhibitors/Namenda which might help with behavioral difficulties. Patient reportedly had benefitted from Risperdal on past but may be causing gait balance rigidity and this should be reconsidered. Question of adverse med reaction versus worsening of patient's primary condition with increased aggression and confusion Consider olanzapine consider Rexulti consider Namenda after medication history continue current medication for present time CBC profile unremarkable EKG noted to be sinus rhythm QTC unremarkable inferior wall [place] noted on EKG patient does have history of stenting and CABG 02/01/2025 Continue Risperdal if too much EPS consider change to olanzapine seems better with low-dose Risperdal trazodone at bedtime 02/06/2025 Patient seems more stable seen with family. Concerns regarding patient were reviewed including diagnosis recommendations including recommendation for a transplant case manager. Patient's does have an alarm for when he leaves the apartment. Cholinesterase inhibitor contraindicated patient seems more stable on relatively low-dose Risperdal and trazodone. Trazodone was not useful as a PRN for agitation but seems useful for sleep. 02/07/2025 Patient was seen by family seems ongoing more stable less irritable less perplexed and agitated. Calmer no adverse effects noted from medication including Risperdal continue plan of care discharge planning 02/08/25 d/c in am if stable cont plan of care Reason for continued inpatient stay Substantial Risk for: inability to function, rapid decompensation and med/psych decompensation Time Spent With Patient Time: Total time managing care of this patient today ____ minutes.
[2025-02-08] MEDS: risperiDONE 1 MG TABLET PO (17:27)
[2025-02-08 20:00] VITALS: BP 118/61; PULSE 66; RESP 16; TEMP 36.6; O2SAT 96
[2025-02-08] MEDS: traZODone HCL 50 MG TABLET PO (20:31)
[2025-02-09 08:29] VITALS: BP 173/91; PULSE 77; RESP 16; TEMP 36.4; O2SAT 97
[2025-02-09] MEDS: Atorvastatin Calcium 80 MG TABLET PO (08:31)
[2025-02-09] MEDS: lisinopriL 20 MG TABLET PO (08:31)
[2025-02-09] MEDS: risperiDONE 0.5 MG TABLET PO (08:31)
[2025-02-09] MEDS: Famotidine 20 MG TABLET PO (08:32)
[2025-02-09] MEDS: Metoprolol Tartrate 25 MG TABLET PO (08:32)
[2025-02-09] MEDS: Isosorbide Mononitrate 60 MG TAB.ER.24H PO (08:32)
[2025-02-09] MEDS: Aspirin 81 MG TAB.CHEW PO (08:32)
[2025-02-09] MEDS: Clopidogrel Bisulfate 75 MG TABLET PO (08:32)
[2025-02-09] MEDS: Escitalopram Oxalate 10 MG TABLET PO (08:32)
--- NOTE | 2025-02-09 10:41 | PM.PSYDC ---
DS: Providers Provider Date of Service: 02/09/25 Date of admission: 01/30/25 14:30 Date of discharge: 02/09/25 Primary care physician: Magdiel Chamberlain MD DS: Diagnosis Discharge Diagnosis (1) Cognitive and neurobehavioral dysfunction: Status: Acute (2) Dementia with aggressive behavior: Status: Acute (3) Hx of CABG: Status: Acute (4) Hypertension: Status: Acute DS: Medications Discharge Medications Home Medications: Home Medications ?Medication ?Instructions ?Recorded ?Confirmed isosorbide mononitrate 60 mg 60 mg PO DAILY 05/10/24 01/29/25 tablet,extended release 24 hr lisinopril 20 mg tablet 20 mg PO DAILY 05/10/24 01/29/25 rosuvastatin 40 mg tablet 40 mg PO DAILY 05/10/24 01/29/25 escitalopram oxalate 10 mg tablet 5 mg PO BID 01/29/25 01/30/25 (Lexapro) famotidine 20 mg tablet (Pepcid) 20 mg PO BID 01/29/25 01/29/25 aspirin 81 mg tablet,delayed 81 mg PO DAILY 01/30/25 01/30/25 release Previous Rx's ?Medication ?Instructions ?Recorded clopidogrel 75 mg tablet (Plavix) 75 mg PO DAILY 30 days #30 tabs 02/09/25 metoprolol tartrate 25 mg tablet 25 mg PO BID 30 days #60 tabs 02/09/25 risperidone 0.5 mg tablet 0.5 mg PO DAILY 30 days #30 tabs 02/09/25 risperidone 1 mg tablet 1 mg PO DAILY@1700 30 days #30 tabs 02/09/25 trazodone 50 mg tablet 50 mg PO BEDTIME 30 days #30 tabs 02/09/25 Mental Status Exam Mental Status Exam Narrative: Patient casually dressed alert response to name can start answering some casual questions follows simple commands does become perplexed and anxious when he is unable to communicate or remember the right information but improving ongoing pleasant affect Not impulsive agitated or combative when seen no gross paranoia noted Data Imaging Diagnostic Imaging Impressions Head CT 01/29/25 13:50 IMPRESSION: No acute intracranial abnormality. Electronically signed by: Jeevan Keller MD 01/29/2025 02:46 PM EDT Hand X-Ray 01/29/25 14:12 IMPRESSION: 1. No acute bony abnormalities. 2. No radiographic evidence of inflammatory arthropathy. 3. 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 Electronically signed by: Cornelius Andersen MD 01/29/2025 03:02 PM EDT RP Cervical Spine CT 01/29/25 14:14 IMPRESSION: No evidence of fracture or malalignment of the cervical spine. Degenerative changes as described. Electronically signed by: Jeevan eKller MD 01/29/2025 02:51 PM EDT RP Cardiology Testing Signed Patient: Lorraine Ho MR#: [id number] : 1940 Acct:[id number] Age/Sex: 84 / M ADM Date: 01/29/25 Loc: HO.ED Attending Dr: Ordering Physician: Generic ED Physician Date of Service: 01/30/25 Procedure(s): ECG 12 lead EKG Accession Number(s): [id number] cc: Generic ED Physician~ Test Reason : PROLONG QTC CHECK Blood Pressure : */* mmHG Vent. Rate : 65 BPM Atrial Rate : 65 BPM P-R Int : 134 ms QRS Dur : 76 ms QT Int : 438 ms P-R-T Axes : 25 -11 28 degrees QTcB Int : 455 ms Normal sinus rhythm Inferior infarct , age undetermined Abnormal ECG No previous ECGs available Referred By: Generic ED Physician Electronically Signed By: JUAN VENEGAS MD Dictated By: Juan Venegas MD Signed By: <Electronically signed by Juan Venegas MD in OV> 01/30/25 0954 DD/ 0815 TD/TT: 01/30/25 0954 Elevator Runner: DS: Summary Hospital Course Hospital Course: Psychiatry Admission Note (In) Signed Patient: Lorraine Ho MR#: [id number] : 1940 Acct:[id number] Age/Sex: 84 / M [facility]: Kaylah Mortensen NP cc: Gregorio Ibrahim MD~ HPI Date of Service: 01/31/25 Chief Complaint: combative behaviors Sources of Information: patient interviewed, chart reviewed and crisis/core team assessment reviewed Additional Sources of Information: Patient unable to provide relevant information at this time healthcare proxy invoked Patient seen at 10:30 in evaluation chart reviewed admission physical in the emergency room reviewed patient noted to have hypertension history of heart disease history of dementia HPI Subjective Notes: Conditional Voluntary Healthcare Proxy: Yes Narrative: The patient is an 84-year-old retired male referred from the emergency room secondary to worsening confusion combativeness and wandering. Be patient lives with his at assisted living. Patient had been on Risperdal own previously apparently had parkinsonian symptoms and this was changed to Seroquel at 1 point and patient had increasing symptoms of agitation aggression and disorientation. Some of this would appear to be related to significant dementia with wandering and hallucinations. The patient was discontinued off Seroquel and started on Risperdal again on 01/26/2025. The patient had been calm increasingly combative both toward staff and his . Patient has apparently been seeing people who were not there the patient does have a psychiatrist and nurse practitioner who reportedly specialized in geriatric psychiatry. He is seeing Klaudia Monge nurse practitioner telephone [phone] Orozco at at [facility] in [place] telephone [phone] . The patient has been most recently on Risperdal 0.5 b.i.d. escitalopram Wellbutrin and trazodone 25 b.i.d.. 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 Surgical History (Updated 01/31/25 @ 15:19 by Gregorio Ibrahim MD) H/O heart artery stent Hx of CABG Family History: Unclear at this time Social History: Patient is living with his at [facility] he has 4 children his is healthcare proxy Substance History: None known Trauma History: None known Diagnostics Vital Signs (24Hr): Vital Signs - 24 hr 01/30/25 08:58 01/30/25 09:13 01/30/25 09:28 Temperature Pulse Rate 59 58 59 Respiratory Rate 16 16 18 Blood Pressure 108/60 170/91 H 166/68 H Pulse Oximetry 97 96 96 Oxygen Delivery Method Room Air Room Air Room Air 01/30/25 09:43 01/30/25 09:58 01/30/25 10:14 Temperature Pulse Rate 58 59 60 Respiratory Rate 16 16 14 Blood Pressure 162/75 H 170/77 H 166/93 H Pulse Oximetry 98 97 94 Oxygen Delivery Method Room Air Room Air Room Air 01/30/25 10:28 01/30/25 10:43 01/30/25 10:59 Temperature 97.9 F Pulse Rate 59 57 59 Respiratory Rate 14 16 16 Blood Pressure 165/87 H 177/92 H 119/64 Pulse Oximetry 97 96 97 Oxygen Delivery Method Room Air Room Air Room Air 01/30/25 11:13 01/30/25 11:28 01/30/25 11:42 Temperature Pulse Rate 59 57 76 Respiratory Rate 16 16 16 Blood Pressure 102/64 155/94 H 219/112 H Pulse Oximetry 98 97 98 Oxygen Delivery Method Room Air Room Air Room Air 01/30/25 12:06 01/30/25 14:18 01/30/25 14:19 Temperature Pulse Rate 61 Respiratory Rate Blood Pressure 197/91 H 181/101 H 181/101 H Pulse Oximetry Oxygen Delivery Method 01/30/25 15:20 01/30/25 19:36 01/30/25 19:42 Temperature 97.1 F 97.4 F Pulse Rate 65 90 90 Respiratory Rate 18 16 Blood Pressure 186/86 H 118/76 118/76 Pulse Oximetry 97 96 Oxygen Delivery Method Room Air Room Air 01/31/25 07:56 Temperature 97.6 F Pulse Rate 99 Respiratory Rate 20 Blood Pressure 159/83 H Pulse Oximetry 100 Oxygen Delivery Method Room Air BMI result Body Mass Index 22.9 Labs 01/29/25 14:03 document embedded image 01/30/25 14:50 document embedded image Labs: Laboratory Results - last 48 hr 01/29/25 01/29/25 01/29/25 14:03 15:53 15:56 WBC 8.4 RBC 4.29 L Hgb 14.0 Hct 40.4 L MCV 94.2 MCH 32.6 MCHC 34.7 RDW 12.4 Plt Count 177 MPV 10.7 Immature Gran % (Auto) 0.4 Neut % (Auto) 61.1 Lymph % (Auto) 26.1 [place] % (Auto) 10.5 Eos % (Auto) 1.5 Baso % (Auto) 0.4 Lymph # (Auto) 2.2 [place] # (Auto) 0.9 Eos # (Auto) 0.1 Baso # (Auto) 0.0 Abs Immat Gran (auto) 0.03 Absolute Neuts (auto) 5.1 Absolute Nucleated RBC 0.000 Nucleated RBC % (auto) 0.0 Sodium 140 Potassium 4.0 Chloride 111 H Carbon Dioxide 26 Anion Gap 7 L BUN 17 H Creatinine 1.29 Estim Creat Clear Calc 33.0 Estimated GFR 53 Random Glucose 99 Calcium 9.0 Magnesium 2.0 Total Bilirubin 1.0 AST 24 ALT 23 Alkaline Phosphatase 56 Total Protein 6.3 L Albumin 3.9 TSH 1.43 Urine Color Yellow Urine Appearance Clear Urine pH 6.0 Ur Specific [place] 1.020 Urine Protein Trace Urine Glucose (UA) Negative Urine Ketones Trace Urine Blood Negative Urine Nitrite Negative Ur Leukocyte Esterase Negative Urine Opiates Screen Not Detected Ur Buprenorphine Scrn Not Detected Ur Oxycodone Screen Not Detected Urine Methadone Screen Not Detected Urine Fentanyl Screen Not Detected Ur Barbiturates Screen Not Detected Ur Phencyclidine Scrn Not Detected Ur Amphetamines Screen Not Detected U Benzodiazepines Scrn Not Detected Urine Cocaine Screen Not Detected U Marijuana (THC) Screen Not Detected 01/30/25 14:50 WBC RBC Hgb Hct MCV MCH MCHC RDW Plt Count MPV Immature Gran % (Auto) Neut % (Auto) Lymph % (Auto) [place] % (Auto) Eos % (Auto) Baso % (Auto) Lymph # (Auto) [place] # (Auto) Eos # (Auto) Baso # (Auto) Abs Immat Gran (auto) Absolute Neuts (auto) Absolute Nucleated RBC Nucleated RBC % (auto) Sodium 144 Potassium 4.1 Chloride 112 H Carbon Dioxide 27 Anion Gap 9 L BUN 12 Creatinine 1.09 Estim Creat Clear Calc 39.1 Estimated GFR > 60 Random Glucose 113 Calcium 9.3 Magnesium Total Bilirubin 1.1 H AST 32 ALT 21 Alkaline Phosphatase 57 Total Protein 6.4 L Albumin 3.8 TSH Urine Color Urine Appearance Urine pH Ur Specific [place] Urine Protein Urine Glucose (UA) Urine Ketones Urine Blood Urine Nitrite Ur Leukocyte Esterase Urine Opiates Screen Ur Buprenorphine Scrn Ur Oxycodone Screen Urine Methadone Screen Urine Fentanyl Screen Ur Barbiturates Screen Ur Phencyclidine Scrn Ur Amphetamines Screen U Benzodiazepines Scrn Urine Cocaine Screen U Marijuana (THC) Screen Imaging Radiology Impressions: ITS Impressions Head CT 01/29/25 13:50 IMPRESSION: No acute intracranial abnormality. Electronically signed by: Jeevan Keller MD 01/29/2025 02:46 PM EDT RP Hand X-Ray 01/29/25 14:12 IMPRESSION: 1. No acute bony abnormalities. 2. No radiographic evidence of inflammatory arthropathy. 3. 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 Electronically signed by: Cornelius Andersen MD 01/29/2025 03:02 PM EDT RP Cervical Spine CT 01/29/25 14:14 IMPRESSION: No evidence of fracture or malalignment of the cervical spine. Degenerative changes as described. Electronically signed by: Jeevan Keller MD 01/29/2025 02:51 PM EDT RP Meds/Allergies Meds Home Medications Medication Instructions Recorded Confirmed Type isosorbide mononitrate 60 mg 60 mg PO DAILY 05/10/24 01/29/25 History tablet,extended release 24 hr lisinopril 20 mg tablet 20 mg PO DAILY 05/10/24 01/29/25 History metoprolol tartrate 25 mg tablet 25 mg PO DAILY 05/10/24 01/30/25 History risperidone 0.5 mg tablet 0.5 mg PO BID 05/10/24 01/30/25 History rosuvastatin 40 mg tablet 40 mg PO DAILY 05/10/24 01/29/25 History bupropion HCl 100 mg tablet,12 hr 100 mg PO DAILY 01/29/25 01/29/25 History sustained-release clopidogrel 75 mg tablet (Plavix) 75 mg PO DAILY 01/29/25 01/30/25 History escitalopram oxalate 10 mg tablet 5 mg PO BID 01/29/25 01/30/25 History (Lexapro) famotidine 20 mg tablet (Pepcid) 20 mg PO BID 01/29/25 01/29/25 History trazodone 50 mg tablet 25 mg PO BID 01/29/25 01/30/25 History aspirin 81 mg tablet,delayed 81 mg PO DAILY 01/30/25 01/30/25 History release cetirizine 10 mg tablet (Zyrtec) 10 mg PO BEDTIME 01/30/25 01/30/25 History Allergies Allergies Allergy/AdvReac Type Severity Reaction Status Date / Time No Known Allergies Allergy Verified 01/29/25 13:50 Mental Status Exam Mental Status Exam Narrative: The patient is casually dressed when seen he is using a walker but has difficulty he is bradykinetic difficulty attending to the walker and himself in space he was alert in response to his name when seen the patient was not verbal he did respond to simple directions. He was noted to have difficulties in basic activities such as feeding himself ambulating sitting down in chair he was not aggressive when seen when seen impulse control was intact tremor noted unable to test further cognition at this time when seen was not verbal Assessment & Plan Assessment & Plan (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 Patient was given medication in the ER and he may be more confused today was not verbal when seen he was ambulating with difficulty and is a one-to-one for ambulation he does not have spatial awareness he did respond to his name. Patient appears to have worsening difficulty confusion and aggression in the context of dementia. Will get further history from family and outpatient providers. Check TSH B12 folate try and determine if patient has had trial of cholinesterase inhibitors/Namenda which might help with behavioral difficulties. Patient reportedly had benefitted from Risperdal on past but may be causing gait balance rigidity and this should be reconsidered. Question of adverse med reaction versus worsening of patient's primary condition with increased aggression and confusion Consider olanzapine consider Rexulti consider Namenda after medication history continue current medication for present time CBC profile unremarkable EKG noted to be sinus rhythm QTC unremarkable inferior wall NC noted on EKG patient does have history of stenting and CABG Patient educated on: other (Unable to take in information) Guardian/Caregiver educated on: diagnosis and medication risk/benefits Informed Consent: further education needed Reason for continued inpatient stay Substantial Risk for: harm to others, inability to function, rapid decompensation and med/psych decompensation Statement Statement: I have reviewed the history and physical and performed a pertinent examination on my patient. No changes have occurred unless specified. If the History and Physical was not performed prior to admission, the Hospitalist's service will be consulted for completing the admission physical. HOSPITAL COURSE THE PATIENT WAS ADMITTED THROUGH THE EMERGENCY ROOM the patient had been confused after medication in the emergency room. He gradually cleared over the 1st 2-3 days. The patient initially was irritable easily agitated difficult to redirect head CT scan and cervical spine film were unremarkable no acute changes. The patient was on Risperdal 0.5 mg in the morning 1 mg at bedtime trazodone 50 mg at bedtime escitalopram 10 mg daily. Patient gradually became more socialized some periods of . Patient's had signed the patient in as healthcare proxy and family meeting was held. Discussed possibility that the patient might need at some point which could be sooner rather than later a locked assisted living setting because of wandering. Patient was pleasant he did get frustrated at times with his memory when he could not convey what he wanted to speak about. Sleep and appetite were okay. Patient's case was reviewed with his outpatient psychiatric provider Klaudia palma nurse practitioner cholinesterase inhibitors were not started EKG was generally unremarkable questionable history of inferior wall NC discussion was held regarding possibly starting Namenda but given that patient was generally doing well on relatively low-dose Risperdal with good ambulation this was not started. Olanzapine which would have less EPS could be used on a p.r.n. basis Olanzapine can be used for severe agitation irritability will need gentle reassurance distraction additional help is being given at home may need asstd living locked unit Status at Discharge Functional status at discharge: independent ambulation Overall status at discharge: patient is progressing back to baseline Time Spent with Patient Time attestation: Total time managing care of this patient today _30___ minutes. Time spent: Less than 30 minutes Discharge Plan Discharge Anticipated Discharge Date/Time: 02/09/25 11:00 Patient Disposition: Home Health Service Discharge Diagnosis: dementia with agitation cognitive and neurobehavioral dysfx hypertension cabg Referrals: Klaudia Monge NP [Other] - 02/15/25 12:30 pm (Your next appointment with Klaudia is scheduled for 02/15/25 in office at 12:30pm) [facility] [Other] - 02/09/25 11:00 am (Transfer to [facility] 02/09/25 at 1100. ) Magdiel Chamberlain MD [Primary Care Provider] - 1 Week (Request placed for follow up PCP appointment. The office will contact you directly with appointment.) Discharge Medications: New metoprolol tartrate 25 mg Tablet 25 mg PO BID 30 Days Qty: 60 0RF Protocol: Hold for SBP/HR < HOLD for SBP < : 90 HOLD for HR < : 60 trazodone 50 mg Tablet 50 mg PO BEDTIME 30 Days Qty: 30 0RF risperidone 1 mg Tablet 1 mg PO DAILY@1700 30 Days Qty: 30 0RF clopidogrel [Plavix] 75 mg tablet 75 mg PO DAILY 30 Days Qty: 30 2RF olanzapine 2.5 mg tablet 2.5 mg PO Q4H MDD max 3 x 24 hrs PRN (Reason: agitation/anxiety) 30 Days Qty: 90 1RF Continued famotidine [Pepcid] 20 mg Tablet 20 mg PO BID escitalopram oxalate [Lexapro] 10 mg Tablet 5 mg PO BID aspirin 81 mg Tablet,Delayed Release (Dr/Ec) 81 mg PO DAILY lisinopril 20 mg tablet 20 mg PO DAILY rosuvastatin 40 mg tablet 40 mg PO DAILY isosorbide mononitrate 60 mg tablet extended release 24 hr 60 mg PO DAILY Changed risperidone 0.5 mg tablet 0.5 mg PO DAILY 30 Days Qty: 30 1RF Discontinued trazodone 50 mg Tablet 25 mg PO BID clopidogrel [Plavix] 75 mg Tablet 75 mg PO DAILY bupropion HCl 100 mg Tablet Sustained-Release 12 Hr 100 mg PO DAILY cetirizine [Zyrtec] 10 mg Tablet 10 mg PO BEDTIME metoprolol tartrate 25 mg tablet 25 mg PO DAILY Discharge Orders: Discharge Order (Routine); Ordered 02/09/25 Ordered By: Gregorio Ibrahim Diet: Advance to usual diet Activity on Discharge: As tolerated Stand Alone Forms: Patient Portal Discharge page Print Language: [place] Island[place] Care Plan Goals: stabilize mood decrease agitation set up system to decrease risk of wandering Health Concerns: dementia with agitation cabg hypertension Plan of Treatment: medication additional staffing in the house for suppoirt Assessment: pt calm cooperative less reactive eating well Discharge Date/Time: 02/09/25 11:10
== END 2025-02-09 11:10 | disposition home health service (06) | DRG 884 ==
LOC: HO.ED 01-30 14:33 → HO.PGERI 01-30 14:57
PROVIDERS: Physician Assistant Medical; Admitting Provider Social Worker; Emergency Provider Emergency Medicine Emergency Medical Services; PCP Internal Medicine; Visit Provider Social Worker
DX: F03.911 Unspecified dementia, unspecified severity, with agitation (principal); F03.918 Unspecified dementia, unspecified severity, with other behavioral disturbance; Z91.83 Wandering in diseases classified elsewhere; I10 Essential (primary) hypertension; I25.119 Atherosclerotic heart disease of native coronary artery with unspecified angina pectoris; Z95.1 Presence of aortocoronary bypass graft; Z79.02 Long term (current) use of antithrombotics/antiplatelets; Z79.82 Long term (current) use of aspirin; Z79.899 Other long term (current) drug therapy
CPT/HCPCS: 36415; 70450; 72125; 73130; 80053; 80061; 80307; 81003; 82607; 83036; 83735; 84439; 84443; 85025; 93005; 99285; J1200; J1630; J2250; S9485

== ENCOUNTER → 2025-01-29 13:49 | Outpatient (BNV) | payer MEDICARE, SELFPAY | PROVIDERS: PCP Internal Medicine; Visit Provider Radiology Diagnostic Radiology | DX: M79.644 Pain in right finger(s) (principal); M79.645 Pain in left finger(s); S19.9XXA Unspecified injury of neck, initial encounter; S09.90XA Unspecified injury of head, initial encounter | CPT/HCPCS: 70450; 72125; 73110; 73130 ==

== ENCOUNTER → 2025-01-30 07:47 | Outpatient (BNV) | payer MEDICARE, SELFPAY | PROVIDERS: Emergency Provider Emergency Medicine Emergency Medical Services; PCP Internal Medicine; Visit Provider Internal Medicine Cardiovascular Disease | DX: R94.31 Abnormal electrocardiogram [ECG] [EKG] (principal); Z13.6 Encounter for screening for cardiovascular disorders | CPT/HCPCS: 93010 ==

== ENCOUNTER → 2025-01-30 14:30 | Outpatient (BNV) | payer MEDICARE, SELFPAY | PROVIDERS: Admitting Provider Social Worker; Emergency Provider Emergency Medicine Emergency Medical Services; PCP Internal Medicine; Visit Provider Psychiatry & Neurology Psychiatry | DX: F09 Unspecified mental disorder due to known physiological condition (principal); F03.918 Unspecified dementia, unspecified severity, with other behavioral disturbance; Z95.1 Presence of aortocoronary bypass graft; I10 Essential (primary) hypertension | CPT/HCPCS: 99231; 99232 ==

== ENCOUNTER → 2025-01-30 14:30 | Outpatient (BNV) | payer MEDICARE, SELFPAY | PROVIDERS: Admitting Provider Social Worker; Emergency Provider Emergency Medicine Emergency Medical Services; PCP Internal Medicine; Visit Provider Psychiatry & Neurology Psychiatry | DX: F09 Unspecified mental disorder due to known physiological condition (principal); F03.918 Unspecified dementia, unspecified severity, with other behavioral disturbance; Z95.1 Presence of aortocoronary bypass graft; I10 Essential (primary) hypertension | CPT/HCPCS: 90792 ==